=== PATIENT | male | born 1990 | race Caucasian/White ===

== ENCOUNTER 2020-10-14 08:49 | Outpatient (REF) | payer MEDICAID, SELFPAY | END 2020-10-14 08:50 | disposition home or self-care (01) | LOC: HO.LAB 08:49 | PROVIDERS: PCP Hospitalist; Visit Provider Internal Medicine | DX: Z20.828 Contact with and (suspected) exposure to other viral communicable diseases (principal) | CPT/HCPCS: C9803; U0003 ==

== ENCOUNTER 2021-09-18 18:56 | Emergency (ER) | payer MEDICAID, SELFPAY ==
--- NOTE | 2021-09-18 21:14 | ED.WOUNDLAC ---
HPI - Wound/Laceration General Stated Complaint: Thumb lac Time Seen by Provider: 09/18/21 20:47 Source: patient Mode of arrival: ambulatory Limitations: no limitations History of Present Illness HPI narrative: This is a 31-year-old male that comes to the emergency department to a laceration to his right distal 1st digit that occured at noon today. Patient tells me he was working with glass, and he cut himself. He tells me he immediately cleaned the area, the bleeding was well controlled. Patient is not on a blood thinners. He does not suspect that there is a foreign body within the laceration. This was a work related injury. He denies numbness, tingling, fevers, chills, chest pain, shortness of breath. He is able to move the finger with no difficulty. He is not up to date on a tetanus shot. Onset (ago): hour(s) (9) Location: other (right 1st digit (distal aspect)) Place: work Patient tetanus UTD: No Context: accidental Associated symptoms: none Treatments prior to arrival: other (cleaned area. ) Related Data Allergies Allergy/AdvReac Type Severity Reaction Status Date / Time Unable to Assess Allergy Unverified 09/18/21 20:50 Review of Systems Review of Systems: Constitutional : No Fever, No Chills, Cardiovascular : No Chest Pain, No SOB Respiratory : No Dyspnea Gastrointestinal : No abdominal pain Musculoskeletal : No Joint Swelling Skin : No rash, positive skin laceration Neuro : No Weakness, No Numbness Psych : No SI/HI PMFSH Past Medical History Attestation statement: The following information was validated with the patient. Source: old records reviewed and nursing notes reviewed Social History Social History Advance Directives: No Advance Directives Information Provided: No Physical Exam Vital Signs: Appearance: Alert.? Oriented X3.? No acute distress.? Head: Normocephalic, atraumatic, no step-offs or deformities Eyes: Pupils equal, round and reactive to light.? ENT: Pharynx normal.? Neck: Normal inspection.? Neck supple.? CVS: Normal heart rate and rhythm.? Pulses normal.? Respiratory: No respiratory distress.? Breath sounds normal.? Abdomen: Soft and nontender.? Skin: Skin warm and dry.? Normal skin color.? Normal skin turgor.?+ 4 cm linear laceration to the ventral right 1st distal digit. That digit has sensory and motor intact. And full range of motion. No evidence of foreign bodies. Extremities: No lower extremity edema.? No calf ttp. 5/5 strength to bilateral upper and lower extremities Back: No midline tenderness, no C-spine tenderness, full range of motion, no CVA tenderness bilaterally Neuro: Oriented X 3.? No motor deficit.? No sensory deficit. MDM - Wound/Laceration MDM Narrative Medical decision making narrative: 2117 This is a 31-year-old male that presents to the emergency department status post cutting himself on glass at work today, he cut his the ventral aspect right 1st distal digit with glass. Patient tells me clean the area after the cut. He does not suspect that there is a foreign body in the area. He denies fevers, chills, nausea, vomiting, tingling, numbness to the area. He tells me is able to move his finger, and sensation is intact. He is not up-to-date on tetanus shot. Upon physical examination patient appears well, he is in no distress. Lungs are clear to auscultation. S1-S2 appreciated free of murmurs. Abdomen soft nontender nondistended. Bilateral upper and lower extremities 5/5 strength, sensation motor intact. There is a 4 cm linear laceration to the ventral right 1st distal digit. That digit has sensory and motor intact. And full range of motion. There does not appear to be any foreign bodies in the area. I discussed obtaining a plain film of the right hand to ensure that there is no foreign bodies however patient tells me he does not want an x-ray since he does not think there is anything in there. I warned the patient that if there is there could be risks associated with a retained foreign body. I was able to successfully suture the lashes array crystal using 4-0 nylon sutures, I put 4 sutures in, simple interrupted. Patient tolerated procedure well. Seeing as though this was a simple laceration, with glass, and patient is not a diabetic or immunocompromised I will not prescribe antibiotics at this time. I have advised patient to put antibiotic ointment on to the area, and return to get suture removal in 7-10 days. I also gave him strict return precautions, and explained him signs of infection such as fevers, chills, nausea, vomiting, discharge from the wound, worsening pain. Patient understood these instructions, and will return if any of these occur. I also ordered a Boostrix shot for the patient. Patient is safe for discharge home and he should return in 7-10 days for suture removal. Procedures Laceration Laceration 1: Site: other (Ventral, distal aspect of 1st digit.) Side (If applicable): right Size (cm): 4 Description: linear Depth: simple, single layer Local Anesthetic: lidocaine 1% Amount of anesthesia used (mL): 5 Pre-repair: wound explored, irrigated extensively and deep structures intact Skin layer closed with: nylon Size (cm): 4-0 Number of sutures: 4 Technique: simple, interrupted Critical Care Time Critical Care Time Critical Care Time: No Discharge Plan Discharge Clinical Impression: Laceration of right thumb, Work related injury Patient Disposition: Home, Self-Care Instructions: Laceration (ED), Finger Laceration (ED) Additional Instructions: Follow-up with your primary care provider this week. Return to the emergency department in 7-10 days for suture removal. Follow up with the work connection if needed since this was a work related injury. [phone] Return to the emergency department with new or worsening symptoms. Or if he develops signs of infection such as redness, swelling, severe pain, discharge from the wound. In case of emergency call 911 Referrals: Mik Griffin [Primary Care Provider] - 2 days
[2021-09-18 21:34] VITALS: BP 149/92; PULSE 90; RESP 18; TEMP 37.1; O2SAT 96; BMI 36.9
[2021-09-18] MEDS: Diphth,Pertus(ACell),Tet Adult 0.5 ML SYRINGE IM (21:42)
--- NOTE | 2021-09-18 21:43 | PC.NURSE ---
lidocaine given by ER mid level provider and discarded
== END 2021-09-18 21:46 | disposition home or self-care (01) ==
PROVIDERS: Emergency Provider Internal Medicine; PCP Hospitalist
DX: S61.210A Laceration without foreign body of right index finger without damage to nail, initial encounter (principal); W25.XXXA Contact with sharp glass, initial encounter; Y93.9 Activity, unspecified; Y92.9 Unspecified place or not applicable; Y99.0 Civilian activity done for income or pay
CPT/HCPCS: 12042; 90471; 90715; 99283; 99284

== ENCOUNTER 2023-01-16 07:46 | Emergency (ER) | payer MEDICAID, SELFPAY ==
--- NOTE | ~2023-01-16 | XR_ITS ---
EXAMINATION: XR RIBS, LEFT CLINICAL INFORMATION: Pain. COMPARISON: None available. TECHNIQUE: PA view the chest as well as 3 views of the left ribs. FINDINGS: Lungs are clear. No consolidation, pneumothorax, or pleural effusion. The cardiomediastinal silhouette and pulmonary vasculature are normal. Osseous structures are unremarkable. Ribs are intact. No fractures are identified. XR/XR ribs LT min 3V w CXR1V IMPRESSION: Unremarkable examination.
[2023-01-16 08:09] VITALS: BP 141/99; PULSE 101; RESP 16; TEMP 36.6; O2SAT 97; BMI 42.2
--- OUTSIDE RECORDS SUMMARY | 2023-01-16 09:07 | XMS_ITS | Continuity of Care Document ---
:1990 Author Organization [facility] Address [address] [place] [address]- Care Team Providers Name Role Phone Gorge MAURICE, Jeny Moser Primary Care Physician Encounter [facility] [place] Date(s): 02/28/22 - 03/30/22 [facility] [address] [place] [address]- Allergies, Adverse Reactions, Alerts Substance Reaction Severity Status nonsteroidal antiinflammatory agent respiratory distress Active Motrin Bronchospasm Active Immunizations Given and Recorded Vaccine Date Status Refusal Reason influenza virus vaccine, inactivated1 07/29/18 Recorded influenza virus vaccine, inactivated2 09/14/13 Given Influenza Virus Vaccine (oldterm)3 09/27/16 Given pneumococcal 23-valent vaccine4 04/13/13 Given tetanus/diphtheria/pertussis, acel(Tdap)5 04/13/13 Given 1Result Comment: [08/29/2018] [id number] Note: given at [facility]3Admin Note: stop and [id number] Note: vis given, waiver signed and put to [id number] Note: VIS GIVEN waiver signed and put scannning Medications albuterol CFC free 90 mcg/inh inhalation aerosol See Instructions, # 17 Unknown, Refills 5 Tot. Refills 5, INAHLE 2 PUFFS EVERY 4 HOURS NEEDED FORWHEEZING, [facility]/pharmacy #[id number] Start Date: 05/05/19 Status: OrderedNebulizer/Compressor See Instructions, # 1 each, Maintenance, use as directed for mild persistent asthma, 04/29/14 14:01:59, Compound Start Date: 04/29/14 Status: Ordered Problem List Condition Effective Dates Status Health Status Informant Allergic rhinitis(Confirmed) Active Asthma - mild persistent(Confirmed)1 Active Adult general medical exam(Confirmed) Active 1triggered by smoke exposure Social History Social History Type Response Smoking Status Current some day smoker entered on: 11/26/17 Sex
--- OUTSIDE RECORDS SUMMARY | 2023-01-16 09:07 | XMS_ITS | Continuity of Care Document ---
:1990 Author Organization [facility] Address [address] [place] [id number]- Care Team Providers Name Role Phone Mik Griffin MD Primary Care Physician Encounter [facility] [place] ACCT R [id number] Date(s): 03/26/20 - 03/26/[address] [address]- [facility] Discharge Disposition: A-D/C Home Attending Physician: Jarocho Peraza MD Admitting Physician: Jarocho Peraza MD Referring Physician: Not on Staff, Referring MD Allergies, Adverse Reactions, Alerts Substance Reaction Severity Status nonsteroidal antiinflammatory agent respiratory distress Active Motrin Bronchospasm Active Immunizations Given and Recorded Vaccine Date Status Refusal Reason influenza virus vaccine, inactivated1 07/29/18 Recorded influenza virus vaccine, inactivated2 09/14/13 Given Influenza Virus Vaccine (oldterm)3 09/27/16 Given pneumococcal 23-valent vaccine4 04/13/13 Given tetanus/diphtheria/pertussis, acel(Tdap)5 04/13/13 Given 1Result Comment: [08/29/2018] [id number] Note: given at [facility]3Admin Note: stop and [id number] Note: vis given, waiver signed and put to [id number] Note: VIS GIVEN waiver signed and put scannning Medications albuterol CFC free 90 mcg/inh inhalation aerosol See Instructions, # 17 Unknown, Refills 5 Tot. Refills 5, INAHLE 2 PUFFS EVERY 4 HOURS NEEDED FORWHEEZING, [facility]/pharmacy #[id number] Start Date: 05/05/19 Status: OrderedNebulizer/Compressor See Instructions, # 1 each, Maintenance, use as directed for mild persistent asthma, 04/29/14 14:01:59, Compound Start Date: 04/29/14 Status: OrderedoxyCODONE 5 mg oral tablet 5 mg, 1, tablet, By Mouth, Every 6 hours, PRN, for 3 days, # 7 tablet, Refills 0, Tot. Refills 0, Acute 03/29/20 12:03:00 EDT, Pain , Severe, 03/26/20 12:03:00 EDT, Print Requisition, Partial fill uponpatient request Start Date: 03/26/20 Stop Date: 03/29/20 Status: Ordered Problem List Condition Effective Dates Status Health Status Informant Allergic rhinitis(Confirmed) Active Asthma - mild persistent(Confirmed)1 Active Adult general medical exam(Confirmed) Active 1triggered by smoke exposure Results Radiology Reports Exam Date Time Procedure Performing Provider Status 03/26/20 4:46 AM Chest Portable Pooja Burt; Allison (Verified) Notes:(Chest Portable) Reason For Exam: Pain;Other:RESULT: Chest Portable Chest Portable Reason: Pain. Trauma. COMPARISON: None. FINDINGS: LINES AND TUBES: None. LUNGS AND PLEURA: Clear lungs. Normal pulmonary vascularity. No pleural effusion. No pneumothorax. HEART, MEDIASTINUM AND LOUISA: Heart is normal in size. Normal mediastinal and hilar contour. BONES AND SOFT TISSUES: No acute abnormality. IMPRESSION: No acute abnormality. WSN: [id number] Ordering Physician: Erik Trotter Dictated By: Misael Humphrey MD Dictated Date/Time: 03/26/20 8:20 am Reviewed By: Misael Humphrey MD Signed By: Misael Humphrey MD Signed Date/Time: 03/26/20 8:20 am Transcribed By: POOJA Transcribed Date/Time: 03/26/20 8:17 am Vital Signs Most recent to oldest 1 2 3 [Reference Range]: Oxygen Saturation [94-100 %] 99 % 96 % 97 % (03/26/20 12:17 PM) (03/26/20 11:51 AM) (03/26/20 1 0:49 AM) Pulse Rate [55-90 bpm] 114 bpm 116 bpm 117 bpm *H* *H* *H* (03/26/20 12:17 PM) (03/26/20 11:51 AM) (03/26/20 1 0:49 AM) Blood Pressure [90-138/55-84 135/90 mm Hg 131/93 mm Hg 136 /98 mm Hg mm Hg] (03/26/20 12:17 PM) (03/26/20 11:51 AM) (03/26/20 1 0:49 AM) Respiratory Rate [16-30 16 br/min 16 br/min 16 br/mi n br/min] (03/26/20 12:17 PM) (03/26/20 11:51 AM) (03/26/20 1 0:58 AM) Mode of Delivery (Oxygen) Room air Room air Room a ir (03/26/20 12:17 PM) (03/26/20 11:51 AM) (03/26/20 1 0:49 AM) Blood pressure sites Arm, left Arm, left Arm, left (03/26/20 11:51 AM) (03/26/20 10:49 AM) (03/26/20 8 :00 AM) Social History Social History Type Response Smoking Status Current some day smoker entered on: 11/26/17 Sex
--- OUTSIDE RECORDS SUMMARY | 2023-01-16 09:07 | XMS_ITS | Continuity of Care Document ---
:1990 Author Organization [facility] Address [address] [place] [address]- Care Team Providers Name Role Phone Mik Griffin MD Primary Care Physician Encounter [facility] [id number] Date(s): 03/25/20 - 03/26/[address] [address]- [facility] Encounter Diagnosis Intracranial subdural hemorrhage (Final) - 03/26/20 Discharge Disposition: A-D/C AMA Attending Physician: Zenaida Lozoya MD Admitting Physician: Zenaida Lozoya MD Referring Physician: Not on Staff, Referring [...] tetanus/diphtheria/pertussis, acel(Tdap)5 04/13/13 Given 1Result Comment: [08/29/2018] [id number] Note: given at [facility]3Admin Note: stop and [id number] Note: vis given, waiver signed and put to [id number] Note: VIS GIVEN waiver signed and put scannning Medications albuterol CFC free 90 mcg/inh inhalation aerosol See Instructions, # 17 Unknown, Refills 5 Tot. Refills 5, INAHLE 2 PUFFS EVERY 4 HOURS NEEDED FORWHEEZING, [facility]/pharmacy #[id number] Start Date: 05/05/19 Status: OrderedNebulizer/Compressor See [...] Date Time Procedure Performing Provider Status 03/26/20 2:36 AM Calcaneus Min 2 Views Left Ling Mayorga (Verified) Notes:(Calcaneus Min 2 Views Left) Reason For Exam: with Pain;TraumaRESULT: Calcaneus Min 2 Views Left Calcaneus Min 2 Views Left Indication: Trauma. Pain. COMPARISON: None. FINDINGS: No evidence of acute or healing fracture or bone lesion. No arthritic changes or heel spurs. IMPRESSION: No displaced fracture. Normal alignment. WSN: [id number] Ordering Physician: Zenaida Lozoya Dictated By: Misael Humphrey MD Dictated Date/Time: 03/26/20 8:14 am Reviewed By: Misael Humphrey MD Signed By: Misael Humphrey MD Signed Date/Time: 03/26/20 8:14 am Transcribed By: POOJA Transcribed Date/Time: 03/26/20 8:10 am Vital Signs Most recent to oldest [Reference Range]: 1 2 Height 178 cm (03/26/20 12:05 AM) Weight 95.9 kg (03/26/20 12:05 AM) Oxygen Saturation [94-100 %] 98 % 98 % (03/26/20 3:19 AM) (03/26/20 12:05 AM) Pulse Rate [55-90 bpm] 100 bpm 114 bpm *H* *H* (03/26/20 3:19 AM) (03/26/20 12:05 AM) Blood Pressure [90-138/55-84 mm Hg] 121/85 mm Hg 139/ 92 mm Hg (03/26/20 3:19 AM) *H* (03/26/20 12:05 AM) Respiratory Rate [16-30 br/min] 16 br/min 18 br/mi n (03/26/20 3:19 AM) (03/26/20 12:05 AM) Temperature [96.8-100.4 DegF] 97.7 DegF (03/26/20 12:05 AM) Mode of Delivery (Oxygen) Room air Room air (03/26/20 3:19 AM) (03/26/20 12:05 AM) Blood pressure sites Arm, left Arm, left (03/26/20 3:19 AM) (03/26/20 12:05 AM) Temperature Route Oral (03/26/20 12:05 AM) Dry Weight 95.9 kg (03/26/20 12:05 AM) Weight Obtained Via Standing scale (03/26/20 12:05 AM) Dry Weight Obtained Via Standing scale (03/26/20 12:05 AM) Social History Social History Type Response Smoking Status Current some day smoker entered on: 11/26/17 Sex
--- NOTE | 2023-01-16 09:12 | ED_ITS ---
HPI - General Adult General Chief complaint: General Medical Stated complaint: L rib pain Time Seen by Provider: 01/16/23 09:06 Source: patient Mode of arrival: ambulatory Limitations: no limitations History of Present Illness HPI narrative: Patient is a 32 year old assigned male at with no reported medical history presenting to the emergency department today with left sided rib pain after coughing. Patient states that he fell on 01/08 and was treated here in the ED. Patient states that yesterday, he coughed and felt a pop on his left sided and is now having worse left sided rib pain. Patient denies any dizziness, lightheadedness, abdominal pain, nausea, vomiting, fever, chills, blurry vision, double vision, loss of vision, chest pain, difficulty breathing, shortness of breath, back pain, night sweats, pain with urination, increased urinary frequency, increased urinary urgency, blood in his urine or stool, syncope or a near syncopal episode, bowel incontinence, bladder incontinence, bowel retentio n, bladder retention, or any other complaints at this time. Onset (ago): day(s) (1) Radiation: non-radiation Severity: mild Severity scale (1-10): 3 Quality: aching and dull Pain Consistency: constant Relieving factors: none Exacerbating factors: none Associated symptoms: denies other symptoms Treatments prior to arrival: none Related Data Allergies Allergy/AdvReac Type Severity Reaction Status Date / Time No Known Drug Allergies Allergy Unknown Verified 01/16/23 08:08 Review of Systems Constitutional: Constitutional: Reports no additional constitutional complaints, Denies chills, Denies fever(s) and Denies night sweats Eyes: Eyes: Reports no additional eye complaints, Denies blurry vision, Denies change in vision, Denies diplopia, Denies eye discharge, Denies loss of vision and Denies eye pain ENT: Denies dizziness Cardiovascular: Cardiovascular: Reports no additional cardiovascular complaints, Denies chest pain, Denies lightheadedness, Denies Loss of Consciousness and Denies dyspnea Respiratory: Respiratory: Reports no additional respiratory complaints and Denies dyspnea Gastrointestinal: Gastrointestinal: Reports no additional gastrointestinal complaints, Denies abdominal pain, Denies melena, Denies hematochezia, Denies change in bowel habits and Denies change in stool character Genitourinary: Genitourinary: Reports no additional male genitourinary complaints, Denies hematuria, Denies oliguria, Denies difficulty urinating, Denies dysuria, Denies urinary frequency, Denies urinary hesitancy, Denies urinary incontinence and Denies urinary urgency Musculoskeletal: Musculoskeletal: Reports no additional musculoskeletal complaints, Denies numbness and Denies tingling Neurologic: Denies dizziness, Denies loss of vision, Denies numbness and Denies tingling Psychiatric: Psychiatric: Reports no additional psychiatric complaints Endocrine: Endocrine: Reports no additional endocrine complaints Hematologic/Lymphatic: Hematologic/Lymphatic: Reports no additional hematologic/lymphatic complaints Allergic/Immunologic: Allergic/Immunologic: Reports no additional allergic/immunologic complaints [facility] Past Medical History Attestation statement: The following information was validated with the patient. Source: old records reviewed and nursing notes reviewed Social History Social History Advance Directives: No Advance Directives Information Provided: No Physical Exam ED Vital Signs: Vital Signs - 24 hr 01/16/23 08:09 Temperature 98 F Pulse Rate 101 H Respiratory Rate 16 Blood Pressure 141/99 H Pulse Oximetry 97 Oxygen Delivery Method Room Air BMI result Body Mass Index 42.2 Const General: cooperative, no acute distress, alert and awake Nutritional Appearance: well nourished Orientation/consciousness: patient oriented x3 Limitations: no limitations HENMT Head: Yes normal to inspection and Yes atraumatic Ears: hearing grossly normal bilaterally and external ears normal General nose exam: Normal external nose present, no nasal discharge noted and no epistaxis Face and sinus: Yes normal facial exam, No abrasion and No laceration Mouth: Normal oral and palatal mucosa present, no drooling and no muffled voice Eyes General: appearance normal, both eyes and all related structures Periorbital: periorbital findings normal Eyelids: Yes eyelids normal Conjunctivae: conjunctivae normal Pupils: Equal, round and reactive pupils present EOM: EOMs intact bilaterally Neck Neck: Yes normal visual inspection, Yes full ROM and Yes no lymphadenopathy Chest Chest palpation & inspection: normal inspection of the chest Resp Effort & Inspection: normal respiratory effort and able to speak in complete sentences Auscultation: clear to auscultation bilaterally Cardio Rate: regular rate Rhythm: regular rhythm GI Inspection: Yes normal to inspection Palpation (GI): Soft to palpation, not firm, nontender, no guarding and not rigid Neuro General: patient oriented x3 and moves all extremities Cranial nerves: Yes Equal, round and reactive pupils present Cognition (Neuro): normal cognition Motor exam (neuro): 5/5 motor strength present throughout Sensory Exam: Normal double simultaneous stimulation for sensation Coordination: [id number] test normal Extrem General: Yes normal to inspection, Yes full ROM and Yes capillary refill normal Psych Appearance: grossly normal Mental Status: mental status grossly normal Affect: normal affect Attitude: cooperative Thought process: Normal thought process present Thought content: Normal thought content present Insight: Good insight present (Psych) Medications Administered Discontinued Medications Generic Name Dose Route Start Last Admin Trade Name Thor PRN Reason Stop Dose Admin Ketorolac Tromethamine 15 mg 01/16/23 09:17 01/16/23 09:41 Ketorolac Tromethamine 15 Mg/Ml Vial IM 01/16/23 09:18 15 mg ONCE ONE Administration Medical Decision Making Medical Decision Making [facility] Narrative: Patient is a 32 year old assigned male at with no reported medical history presenting to the emergency department today with left sided rib pain. Patient's physical exam was unremarkable. Patient's left rib x-ray showed no acute process. I explained my physical exam findings as well as all test results to the patient. I answered all questions asked by the patient. Patient received IM Toradol which he stated helped his symptoms significantly. I stressed the importance of the patient taking his medication as prescribed. I stressed the importance of the patient following up with his primary care provider. I stressed the importance of the patient returning to the emergency department immediately if his symptoms were to worsen or if he were to develop any dizziness, shortness of breath, difficulty breathing, chest pain, blurry vision, loss of vision, nausea, vomiting, abdominal pain, fever, chills, back pain, or any other complaints. Patient verbalized agreement and understanding with this treatment plan and discharge. Differential Diagnosis Differential Diagnoses: The differential diagnosis associated with the presentation includes left sided rib pain Independent Interpretation I performed an independent interpretation of an: Plain X-Ray Interpretation: My interpretation is in agreement with the radiologist's impression of this imaging study. EXAMINATION: XR RIBS, LEFT CLINICAL INFORMATION: Pain. COMPARISON: None available. TECHNIQUE: PA view the chest as well as 3 views of the left ribs. FINDINGS: Lungs are clear. No consolidation, pneumothorax, or pleural effusion. The cardiomediastinal silhouette and pulmonary vasculature are normal. Osseous structures are unremarkable. Ribs are intact. No fractures are identified. XR/XR ribs LT min 3V w CXR1V IMPRESSION: Unremarkable examination. Dictated By: Win Fair MD Signed By: Electronically signed by Win Fair MD 01/16/23 0902 Discharge Plan Discharge Clinical Impression: Rib pain Patient Disposition: Home, Self-Care Instructions: Rib Contusion (ED) Additional Instructions: Follow up with your primary care provider. Return to the emergency department immediately if your symptoms worsen or if you develop any dizziness, shortness of breath, difficulty breathing, chest pain, blurry vision, loss of vision, nausea, vomiting, abdominal pain, fever, chills, back pain, or any other complaints. Referrals: Mik Griffin MD [Primary Care Provider] - Stand Alone Forms: Work/School Release Interventions: ED Discharge Assessment Last Done: 01/16/23 10:30 Discharge Date/Time: 01/16/23 10:32 Print Language: Slovak
[2023-01-16] MEDS: Ketorolac Tromethamine 15 MG/ML VIAL IM (09:41)
== END 2023-01-16 10:32 | disposition home or self-care (01) ==
PROVIDERS: Emergency Provider Emergency Medicine; PCP Hospitalist
DX: R07.81 Pleurodynia (principal)
CPT/HCPCS: 71101; 96372; 99283; 99284; J1885

== ENCOUNTER 2024-03-11 18:57 | Inpatient (IN) | payer MEDICAID, OTHER, SELFPAY ==
--- NOTE | ~2024-03-11 | CT_ITS ---
EXAMINATION: CT HEAD WITHOUT CONTRAST CLINICAL INFORMATION: Altered mental status. COMPARISON: None. TECHNIQUE: Contiguous axial imaging was performed from the skullbase to vertex without intravenous administration of contrast. This CT examination was performed using dose optimization techniques as appropriate, variously including the following: *Automated exposure control *Adjustment of mA and/or kV according to patient size (this includes techniques or standardized protocols for targeted exams where dose is matched to indication/reason for exam; i.e. extremities or head) *Use of iterative reconstruction technique DLP: 702 mGy-cm. FINDINGS: There is no evidence of acute intracranial hemorrhage or territorial infarction. No abnormal mass effect or midline shift is seen. Gomez to white matter differentiation is well preserved. No extra-axial fluid collections are identified. The ventricles are normal in size. There is no abnormal attenuation within the brain parenchyma. The osseous structures and soft tissues are normal. The mastoid air cells and visualized portions of the paranasal sinuses are well aerated. CT/CT head/brain wo IV con IMPRESSION: No acute intracranial pathology.
[2024-03-11 19:30] VITALS: BP 119/65; BP 142/67; PULSE 92; PULSE 93; RESP 18; TEMP 36.6; O2SAT 96; O2SAT 97; BMI 41.7
--- NOTE | 2024-03-11 19:56 | ED_ITS ---
HPI - General Adult General Chief complaint: Overdose Stated complaint: FOUND UNCNSCIOUS,NARCAN GIVEN,PT USED CRACK Time Seen by Provider: 03/11/24 19:20 Source: patient and old records reviewed Mode of arrival: ambulatory Limitations: no limitations History of Present Illness HPI narrative: 33-year-old male presents for evaluation after reported overdose Patient admits to smoking heroin Apparently his mother found him ?not breathing and with his lips blue. ? He was given 2 mg of Narcan which she responded well to Again, the patient admits to using opiates but denies intent to harm himself I spoke to the patient's mother who is bedside She reports that he has been expressing suicidal ideation for about 1 month He is recently going through a break-up with the mother of 2 of his 3 children He has been expressing numerous self-harm comments to his mother. She reports that he is also involved in self-harm and cuts his legs and feet The patient's mother also reports the patient has a drinking problem Related Data Allergies Allergy/AdvReac Type Severity Reaction Status Date / Time aspirin Allergy Shortness Verified 03/11/24 19:38 of Breath Review of Systems 2 Constitutional: Constitutional: Denies body ache(s), Denies chills, Denies fever(s) and Denies headache(s) Eyes: Eyes: Denies blurry vision ENT: Denies vertigo, Denies dizziness and Denies headache(s) Cardiovascular: Cardiovascular: Denies chest pain and Denies dyspnea Respiratory: Respiratory: Denies cough and Denies dyspnea Gastrointestinal: Gastrointestinal: Denies abdominal pain, Denies nausea and Denies vomiting Musculoskeletal: Musculoskeletal: Denies back pain Integumentary/Breasts: Skin/Breast: Denies rash Neurologic: Denies vertigo, Denies dizziness and Denies headache(s) Psychiatric: Psychiatric: Reports depression and Reports suicidal ideation [facility] Social History Social History Advance Directives: No Advance Directives Information Provided: No Do you have a plan to hurt others: No Plan Physical Exam ED Vital Signs: Vital Signs - 24 hr 03/11/24 19:30 Temperature 98 F Pulse Rate 93 Respiratory Rate 18 Blood Pressure 119/65 Pulse Oximetry 96 Oxygen Delivery Method Room Air BMI result Body Mass Index 41.7 Const General: healthy appearing, comfortable, no acute distress, alert and awake Nutritional Appearance: well nourished Orientation/consciousness: patient oriented x3 HENMT Head: Yes normocephalic and Yes atraumatic Eyes Eyelids: Yes eyelids normal Conjunctivae: conjunctivae normal Sclerae: sclerae normal Corneas: corneas normal Pupils: Equal, round and reactive pupils present EOM: EOMs intact bilaterally Neck Neck: Yes full ROM Resp Effort & Inspection: normal respiratory effort, able to speak in complete sentences and not labored GI Inspection: No distended Palpation (GI): Soft to palpation, not firm, nontender, no guarding and not rigid Skin General skin exam: elasticity normal Neuro General: patient oriented x3 Cranial nerves: Yes CN's II-XII intact bilaterally, Yes Equal, round and reactive pupils present and Yes Bilaterally intact EOM present Cognition (Neuro): normal cognition Extrem Other: Moving all extremities well without any obvious deformities Course Reevaluation(s) Reevaluation #1: When the patient was on the phone with his girlfriend he told his mother ?you should not have Narcan'ed me. The patient's mother felt that he was implying that she should have let him . Time: 20:43 Reevaluation #2: Plan for re-evaluation in the morning Time: 02:15 Medications Administered Discontinued Medications Generic Name Dose Route Start Last Admin Trade Name Thor PRN Reason Stop Dose Admin Lorazepam 2 mg 03/11/24 22:50 03/11/24 22:53 Lorazepam 1 Mg Tablet PO 03/11/24 22:51 2 mg ONCE ONE Administration Medical Decision Making Medical Decision Making [facility] Narrative: 33-year-old male presents for evaluation of an opiate overdose. The patient's mother found him unresponsive and he required Narcan to be able to breathe independently. The patient arrives the ER awake, alert and oriented. Initially he was denying any suicidal ideation to me. I discussed with his mother at length who expresses numerous concerns about suicidal comments in the past and recent stressors that the patient has been through. She is very concerned that he will harm himself. I discussed these with the patient who did not deny them. Plan for medical clearance and care team evaluation. The patient is awake, alert and oriented to me he is acting appropriately. However, the patient's mother states that he has been perseverating and asking the same question repeated times. Plan for CT scan. The patient has no neuro deficits on my exam Differential Diagnosis Differential Diagnoses: The differential diagnosis associated with the presentation includes Substance abuse Depression Suicidal ideation Bipolar disorder Lab Data 03/11/24 20:48 03/11/24 20:48 Labs: Lab Results 03/11/24 Range/Units 20:48 WBC 17.4 H (4.8-10.8) X10*3/uL RBC 5.08 (4.60-5.80) X10*6/uL Hgb 14.9 (14.0-18.0) g/dl Hct 44.2 (42.0-52.0) % MCV 87.0 (80.0-98.0) fL MCH 29.3 (27.0-33.0) pg MCHC 33.7 (31.0-36.0) g/dl RDW 12.7 (11.0-16.0) % Plt Count 277 (160-400) X10*3/uL MPV 10.2 (9.4-12.4) fL Immature Gran % (Auto) 0.5 H (0.0-0.4) % Neut % (Auto) 86.9 H (45-73) % Lymph % (Auto) 6.1 L (20-40) % [place] % (Auto) 6.1 (2-11) % Eos % (Auto) 0.1 (0-4) % Baso % (Auto) 0.3 (0-2) % Lymph # (Auto) 1.1 L (1.2-4.9) X10*3/uL [place] # (Auto) 1.1 (0.1-1.2) X10*3/uL Eos # (Auto) 0.0 (0.0-0.4) X10*3/uL Baso # (Auto) 0.1 (0.0-0.2) X10*3/uL Abs Immat Gran (auto) 0.09 H (0.00-0.03) X10*3/uL Absolute Neuts (auto) 15.1 H (2.0-8.3) x10*3/uL Absolute Nucleated RBC 0.000 (0.0-0.012) X10*3/uL Nucleated RBC % (auto) 0.0 (0.0-0.2) /100WBC Sodium 141 (135-145) mmol/L Potassium 4.2 (3.3-5.1) mmol/L Chloride 107 (96-108) mmol/L Carbon Dioxide 25 (22-29) mmol/L Anion Gap 13 (12-20) BUN 11 (9-16) mg/dL Creatinine 0.84 (0.5-1.4) mg/dL Estim Creat Clear Calc 168.7 Estimated GFR > 60 Random Glucose 75 (60-115) mg/dL Calcium 9.1 (8.4-10.2) mg/dL Total Bilirubin 0.2 (0.0-1.0) mg/dL AST 26 (5-37) U/L ALT 32 (0-40) U/L Alkaline Phosphatase 81 (39-117) U/L Total Protein 7.5 (6.5-8.0) g/dL Albumin 4.2 (3.5-5.0) g/dL Salicylates < 5.0 L (15-30) mg/dL Urine Opiates Screen POSITIVE H (Not Detect) Ur Buprenorphine Scrn Not Detected (Not Detect) ng/mL Ur Oxycodone Screen Not Detected (Not Detect) ng/mL Urine Methadone Screen Not Detected (Not Detect) ng/mL Urine Fentanyl Screen POSITIVE H (Not Detect) Acetaminophen < 3 (<30) mcg/mL Ur Barbiturates Screen Not Detected (Not Detect) Ur Phencyclidine Scrn Not Detected (Not Detect) Ur Amphetamines Screen Not Detected (Not Detect) U Benzodiazepines Scrn Not Detected (Not Detect) Urine Cocaine Screen POSITIVE H (Not Detect) U Marijuana (THC) Screen POSITIVE H (Not Detect) Ethyl Alcohol < 10 mg/dL Discharge Plan Discharge Clinical Impression: Drug overdose, Depression Patient Disposition: Still a Patient Print Language: Kiswahili
--- NOTE | 2024-03-11 20:49 | MHC.EDTECH ---
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
[2024-03-11 20:53] LABS: MANUAL DIFF FLAG NO
[2024-03-11 20:58] LABS: Basophils Absolute Auto 0.1 X10*3/uL (0.0-0.2); Basophils Percent Auto 0.3 % (0-2); Eosinophils Percent Auto 0.1 % (0-4); Hematocrit 44.2 % (42.0-52.0); Hemoglobin 14.9 g/dl (14.0-18.0); Imm Gran Abs Auto 0.09 X10*3/uL (0.00-0.03); Imm Gran Pct Auto 0.5 % (0.0-0.4); Lymphocytes Absolute Auto 1.1 X10*3/uL (1.2-4.9); Lymphocytes Percent Auto 6.1 % (20-40); Mean Corpuscular HGB Conc 33.7 g/dl (31.0-36.0); Mean Corpuscular Hemoglobin 29.3 pg (27.0-33.0); Mean Platelet Volume 10.2 fL (9.4-12.4); Monocytes Absolute Auto 1.1 X10*3/uL (0.1-1.2); Monocytes Percent Auto 6.1 % (2-11); Neutrophils Absolute Auto 15.1 x10*3/uL (2.0-8.3); Neutrophils Percent Auto 86.9 % (45-73); Platelet Count 277 X10*3/uL (160-400); Red Blood Count 5.08 X10*6/uL (4.60-5.80); Red Cell Distribution Width 12.7 % (11.0-16.0); White Blood Count 17.4 X10*3/uL (4.8-10.8)
[2024-03-11 21:06] LABS: Amphetamine Screen Urine Not Detected (Not Detect); Barbiturates, Urine Not Detected (Not Detect); Benzodiazepines Screen Urine Not Detected (Not Detect); Buprenorphine Scr Not Detected (Not Detect); Cannabinoid Screen Urine POSITIVE (Not Detect); Cocaine Screen Urine POSITIVE (Not Detect); Fentanyl, urine POSITIVE (Not Detect); Methadone Screen, Urine Not Detected (Not Detect); Opiate Screen Urine POSITIVE (Not Detect); Oxycodone Screen Urine Not Detected (Not Detect); Phencyclidine Screen Urine Not Detected (Not Detect)
[2024-03-11 21:10] LABS: Acetaminophen LAB < 3 mcg/mL (<30); Alanine Aminotransferase 32 U/L (0-40); Albumin Level 4.2 g/dL (3.5-5.0); Alkaline Phosphatase 81 U/L (39-117); Anion Gap 13 (12-20); Aspartate Amino Transferase 26 U/L (5-37); Bilirubin Total 0.2 mg/dL (0.0-1.0); Blood Urea Nitrogen 11 mg/dL (9-16); Calcium 9.1 mg/dL (8.4-10.2); Carbon Dioxide 25 mmol/L (22-29); Chloride 107 mmol/L (96-108); Creatinine Clr Calc Pharmacy 168.7; Estimated Glomerular Filt Rate > 60; Ethanol < 10 mg/dL; Glucose Random 75 mg/dL (60-115); Potassium 4.2 mmol/L (3.3-5.1); Salicylate < 5.0 mg/dL (15-30); Sodium 141 mmol/L (135-145); Total Protein 7.5 g/dL (6.5-8.0)
--- NOTE | 2024-03-11 22:02 | PC.NURSE ---
client walks around unit asking legal status to different staff in unit.
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
[2024-03-11] MEDS: LORazepam 1 MG TABLET 2 MG PO (22:53)
--- NOTE | 2024-03-11 23:39 | MHC.CARE ---
Mary, patient's ex girlfriend, contacted the CARE team after patient informed her that he was not able to utilize the phone anymore and informed her that she was able to speak to the care team or the nurse in the pod for further information as she is not aware of details surrounding what brought patient into the ED for a crisis evaluation. She indicated that he has contacted her multiple times and continues to repeat himself and the same question and reported that historically he would present with a similar presentation after he had been drinking and reported that he has a history of alcohol use in the past. She stated that he informed her that his mother brought him to the ED however, was unclear on further details and disclosed that his mother and her do not have a good relationship at this time due to an age gap. She stated that she is worried about the patient and reported that they were supposed to get back together however, they were having difficulties over finances and she requested that he renew his license and obtain transportation before allowing him back in the home. She reported that she understands if information is not allowed to be disclosed however, reiterated that he provided verbal consent while calling her and asked that the assessing clinician contact her when he is evaluated so she is able to provide any information if helpful. This underwriter mortgage loan obtained her phone number at this time which is as followed: [phone]. Assessing clinician can follow up as needed.
[2024-03-12 02:00] VITALS: BP 124/68; PULSE 82; RESP 16; O2SAT 98
[2024-03-12] MEDS: Acetaminophen 325 MG TABLET 650 MG PO (07:55)
--- NOTE | 2024-03-12 08:01 | PC.NURSE ---
Addendum entered by Yoanna Martinez 03/12/24 08:49: took shower this morning, conversing with staff. mother at bedside at this time. Original Note: patient awake, requesting tylenol for pain. medicated per the MAR. using phone at this time, speaking in full clear sentences with no obvious signs/symptoms of distress noted.
[2024-03-12] MEDS: Nicotine 21 MG PATCH.TD24 TRANSDERMA ×2 (09:22→18:04)
--- NOTE | 2024-03-12 09:43 | PC.NURSE ---
care team met with patient, speaking with mother in main ED currently.
[2024-03-12] MEDS: Nicotine Polacrilex 2 MG GUM BUCCAL ×2 (11:59→14:35)
[2024-03-12 12:18] VITALS: BP 138/78; PULSE 88; TEMP 36.4; O2SAT 96
--- NOTE | 2024-03-12 13:53 | ECG_ITS ---
Test Reason : QT INTERVAL Blood Pressure : / mmHG Vent. Rate : 085 BPM Atrial Rate : 085 BPM P-R Int : 160 ms QRS Dur : 082 ms QT Int : 392 ms P-R-T Axes : 055 064 024 degrees QTc Int : 466 ms Normal sinus rhythm Normal ECG No previous ECGs available Referred By: Anjel Garcia Electronically Signed By:LAURO MCDANIEL MD
[2024-03-12 14:11] LABS: Appearance Urine Turbid; Color Urine Yellow; Glucose Urine UA 250 mg/dL (Negative); Leukocyte Esterase Urine Negative (Negative); Nitrite Urine Negative (Negative); Specific Gravity - Urine 1.015 (1.005-1.025); UMIC TRIGGER UA YES; Urine Blood Negative (Negative); Urine Ketones Negative (Negative); Urine Protein 100 (2+) mg/dL (Neg-Trace)
[2024-03-12 14:51] LABS: Bacteria Urine None Seen (None Seen); Hyaline Casts Urine 0-2 /LPF (0-2); RBC Urine 0-2 /HPF (0-2); Squamous Epithelial Cell Urine 0-2 /HPF (0-2); WBC Urine 0-5 /HPF (0-5)
[2024-03-12] MEDS: LORazepam 1 MG TABLET PO (15:01)
--- NOTE | 2024-03-12 15:11 | MHC.RECOVRN ---
Met with pt in [facility] after pt presented to ED after overdose. Unclear if it was a SA, pt denies, however, mother had reported pt had been expressing SI. Met with pt after request from CARE Team. Pt sitting on edge of bed, awake, alert, easily engages in conversation. Pt appears comfortable, does not appear to be experiencing withdrawal. Pt denies use as a SA, states it was a bad decision. Pt reports up until last night he had been in recovery x 4 years. Pt reports last night he used 1/2 bag heroin/fentanyl, INH, which resulted in overdose. Pt denies hx overdoses. In regards to alcohol use, pt reports he had one beer last week, denies regular alcohol use. Pt reports he currently goes to AA, sometimes up to 5 meetings per week. Pt reports 4 years ago, prior to entering recovery, had been using cocaine and heroin/fentanyl x 5 months. Pt reports he began using cocaine socially with friends and use escalated and began consisting of opioids as well as cocaine. Pt denies history of injection. Reports INH route of use for substances. Pt denies hx treatment including medications for ARCHIE, ATS, disaster recovery consultant, etc. Discussed recovery resources and supports. In regards to a disaster recovery consultant, pt reports he would not reach out to a leadership coach if he had one. Suggested a leadership coach reaching out to patient, pt states I probably wouldn't nut picker. Pt declines referrals for other resources. Pt reports he will continue working and attending [facility]. Pt provided with written information as well as t/w contact information if needed. Pt denies questions or concerns for t/w.
--- NOTE | 2024-03-12 15:32 | HO.SUDE ---
Please see timber selector Note.
--- NOTE | 2024-03-12 17:28 | MHC.CARE ---
Patient evaluated by the CARE Team and psychiatry, disposition inpatient psychiatric treatment. Provider, Dr. Collado updated and in agreement with plan.
--- NOTE | 2024-03-12 18:41 | PC.NURSE ---
mother brought in patient's cell phone and clothing examiner which was placed into locker 6 d/t rest of belongings being in dec
--- NOTE | 2024-03-12 19:16 | PC.NURSE ---
patient appears to remain at rest at present patient appears in no distress
--- NOTE | 2024-03-12 20:18 | PC.NURSE ---
post asking client to adjourn to his room d/t him sitting within 10 feet of t/w receiving report client asks did i ever do anything to make you upset (similar question yesterday) t/w instructed client that i was direct in requesting what i needed, for him to move out of area. patient continues with defensive tone.
[2024-03-12] MEDS: diphenhydrAMINE HCL 25 MG CAPSULE 50 MG PO (23:33)
[2024-03-12] MEDS: LORazepam 1 MG TABLET 2 MG PO (23:33)
--- NOTE | 2024-03-13 07:13 | PC.NURSE ---
Assumed care of patient at 0645. Patient is observed sleeping in his bed. No signs of distress, breathing is even and unlabored. Will continue plan of care.
[2024-03-13 09:21] VITALS: BP 153/96; PULSE 76; RESP 18; TEMP 36.8; O2SAT 97
[2024-03-13] MEDS: Nicotine Polacrilex 2 MG GUM BUCCAL (09:31)
[2024-03-13] MEDS: LORazepam 1 MG TABLET 2 MG PO (11:31)
--- NOTE | 2024-03-13 11:34 | PC.NURSE ---
Nursing Communication PT approached nursing station requesting Ativan for anxiety. MD aware with orders.
[2024-03-13 13:06] VITALS: BP 144/84; PULSE 74; RESP 16; TEMP 37; O2SAT 98; BMI 40.5
--- NOTE | 2024-03-13 14:52 | MHC.CLN ---
NUTRITION CONSULT FOR REPORTED 15# OR MORE RECENT WEIGHT LOSS. EMR REVIEWED SHOWING WEIGHT HX: 03/13/24=124.284 KG; 03/11/24=128 KG; 01/16/23=129.6 KG. BMI=40.5, EXTREME OBESITY. WEIGHT HX DOES NOT SUPPORT SIGNIFICANT WEIGHT LOSS. NO ADDITIONAL NUTRITION INTERVENTIONS AT THIS TIME.
--- NOTE | 2024-03-13 15:06 | HO.PSYADMNOT ---
HPI Date of Service: 03/13/24 Chief Complaint: FOUND UNCNSCIOUS,NARCAN GIVEN,PT USED CRACK Sources of Information: patient interviewed, chart reviewed and crisis/core team assessment reviewed HPI Subjective Notes: Sanchez Warning and Conditional Voluntary Narrative: Mr. Barboza is a 33 year-old male with hx of cocaine use disorder, opioid use in remission who was brought via EMS after mother found him unresponsive. He was narcaned and by the time he arrived to ED, he was alert, and awake. Mother had reported concern in terms of this being an intentional OD, as pt told mother that he should not have been narcan. Pt recently from significant other and moved back to his mother's house about one month ago. His utox in the D was positive for cocaine, fentanyl, opioids. Pt reports he is currently from significant other. He reports he is not sure reason for his GF to want to take some time. He reports he is working towards being together again but again reports he is not sure why she is not happy with their relationship. He reports he had not used opioids in 4 years. He reports drug of choice is typically cocaine. He adamantly denies that using opioids was with intent to end his life. He does admit that he has been feeling more depressed since separation with GF. He denies VH or AH. No hx of prior psychiatric admission nor psychiatric treatment in the community. Pt is somewhat upset about being here on the unit and minimizing events leading to this admission. Past Psychiatric History: Inpt: none OP: none Past med trials: none Hx of suicide attempts: denies Medical Evaluation Reviewed: Yes [facility] Family History: denies Social History: pt currently staying with his mother. He from GF about one month ago. He has 3 children. 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 Substance History: cocaine: reports recent use weekly or biweekly OPioids: reports not having used in 4 years, but used heroin laced with fentanyl alcohol: denies Trauma History: not disclosed Diagnostics Vital Signs (24Hr): Vital Signs - 24 hr 03/13/24 09:21 03/13/24 13:06 Temperature 98.3 F 98.6 F Pulse Rate 76 74 Respiratory Rate 18 16 Blood Pressure 153/96 H 144/84 H Pulse Oximetry 97 98 Oxygen Delivery Method Room Air Room Air BMI result Body Mass Index 40.5 Labs 03/11/24 20:48 03/11/24 20:48 Labs: Laboratory Results - last 48 hr 03/11/24 03/12/24 20:48 20:48 WBC 17.4 H RBC 5.08 Hgb 14.9 Hct 44.2 MCV 87.0 MCH 29.3 MCHC 33.7 RDW 12.7 Plt Count 277 MPV 10.2 Immature Gran % (Auto) 0.5 H Neut % (Auto) 86.9 H Lymph % (Auto) 6.1 L [place] % (Auto) 6.1 Eos % (Auto) 0.1 Baso % (Auto) 0.3 Lymph # (Auto) 1.1 L [place] # (Auto) 1.1 Eos # (Auto) 0.0 Baso # (Auto) 0.1 Abs Immat Gran (auto) 0.09 H Absolute Neuts (auto) 15.1 H Absolute Nucleated RBC 0.000 Nucleated RBC % (auto) 0.0 Sodium 141 Potassium 4.2 Chloride 107 Carbon Dioxide 25 Anion Gap 13 BUN 11 Creatinine 0.84 Estim Creat Clear Calc 168.7 Estimated GFR > 60 Random Glucose 75 Calcium 9.1 Total Bilirubin 0.2 AST 26 ALT 32 Alkaline Phosphatase 81 Total Protein 7.5 Albumin 4.2 Urine Color Yellow Urine Appearance Turbid Urine pH 6.0 Ur Specific [place] 1.015 Urine Protein 100 (2+) H Urine Glucose (UA) 250 H Urine Ketones Negative Urine Blood Negative Urine Nitrite Negative Ur Leukocyte Esterase Negative Urine RBC 0-2 Urine WBC 0-5 Ur Squamous Epith Cells 0-2 Urine Bacteria None Seen Hyaline Casts 0-2 Salicylates < 5.0 L Urine Opiates Screen POSITIVE H Ur Buprenorphine Scrn Not Detected Ur Oxycodone Screen Not Detected Urine Methadone Screen Not Detected Urine Fentanyl Screen POSITIVE H Acetaminophen < 3 Ur Barbiturates Screen Not Detected Ur Phencyclidine Scrn Not Detected Ur Amphetamines Screen Not Detected U Benzodiazepines Scrn Not Detected Urine Cocaine Screen POSITIVE H U Marijuana (THC) Screen POSITIVE H Ethyl Alcohol < 10 Imaging Radiology Impressions: ITS Impressions Head CT 03/11/24 20:32 IMPRESSION: No acute intracranial pathology. Meds/Allergies Meds Home Medications ?Medication ?Instructions ?Recorded ?Confirmed ?Type albuterol sulfate 90 mcg/actuation 2 puff inhalation Q4-6H 03/12/24 03/12/24 History aerosol inhaler (Ventolin HFA) Allergies Allergies Allergy/AdvReac Type Severity Reaction Status Date / Time aspirin Allergy Shortness Verified 03/11/24 19:38 of Breath Mental Status Exam Mental Status Exam Narrative: Appearance: wearing hospital gown, fair hygiene, in NAD Behavior: guarded Psychomotor: no agitation or retardation noted Speech: clear, normal rate/rhythm/volume, spontaneous TP: mostly linear TC: wanting to be discharged, upset about other's concerns for overdose Mood: anxious Affect: irritable edge SI: denies HI: denies VH/AH: none Delusions: none Insight/judgment: poor x 2. memory/cog: alert, oriented x 3. grossly intact to conversational testing Assessment & Plan Assessment & Plan (1) Mood disorder: Status: Acute Code(s): F39 - Unspecified mood [affective] disorder (2) Cocaine use disorder, moderate, dependence: Status: Acute Code(s): F14.20 - Cocaine dependence, uncomplicated Plan Mr. Barboza is a 33 year-old male with hx of cocaine use, who was brought via EMS after he was found unresponsive by mother. He was narcaned and when he arrived to the hospital he was alert. He reported depressed mood after recent separation with GF about one month ago. He denid that it was a suicid attempt. however, mother reports he was upset with her for narcan him and also opioid not usually his substance of choice. Mother had also expressed concern that in the past month pt presenting as more hopeless and depressed with vague SI. On the unit, pt presents somewhat irritable, minimizing events leading to this admission. We discussed risks, benefits and alternative treatment options. Pt reports anxious mood more concerning than his substance use or his depression. He agreed to start topamax to decrease cocaine use. He also agreed to try clonidine for anxiety. PLAN 1. Admit to M3, CV, 3 day, 15 minutes checks for safety 2. start topamax 25mg po qhs 3. clonidine 0.1mg po BID for anxiety. 4. obtain collateral information 5. aftercare planning. Patient educated on: diagnosis, medication risk/benefits and substance abuse Reason for continued inpatient stay Substantial Risk for: harm to self Statement Statement: I have reviewed the history and physical and performed a pertinent examination on my patient. No changes have occurred unless specified. If the History and Physical was not performed prior to admission, the Hospitalist's service will be consulted for completing the admission physical. Time Spent With Patient Time: Total time managing care of this patient today ____ minutes.
--- NOTE | 2024-03-13 15:46 | PC.ADMIT ---
Ruben is a 33 y/o male admitted to [facility] at 1300 from the Pod on a CV for treatment of unspecified depressive d/o, opioid d/o and cocaine use d/o. Pt is currently living with grandparents after split from ex-girlfriend. Pt participated in admission and was pleasant. Per crisis evaluation pt presented to the ED secondary to a reported intentional overdose on heroin. Pt had to be narcan?d and was found at home by his mother unresponsive and with ?blue lips?. Pt was overheard by hospital staff in the ER telling his mother ?You should not have narcan?d me, you should have just let me go.? Pt reported to TW that ?I did not actively go out find drugs with the want to kill myself. I was feeling down and just was offered drugs and in a time of weakness and feeling like shit I decided to use. I wasn?t looking to overdose and end up here. I haven?t used in a really long time so I am not proud of this.? Pt reports feeling depressed and stressed over a recent breakup with his girlfriend. Pt currently denies SI or HI at this time. Pt denies AH or VH, no overt psychosis or expressed delusion reported or observed at this time. Thought process is linear, speech prosodic. Pt reports poor sleep and is used to using a weighted blanket. Pt reported a 15 lb weight loss recently, but unsure of when it occurred. Pt reports having asthma but has not had any issues for years. Pt tox screen was positive for opiates, cocaine, fentanyl, and marijuana. No withdrawal S&S. Pt reports past childhood trauma.? Pt was placed on 15 check for safety. Pt has an allergy to aspirin. Pt was compliant with skin check and clothing change control analyst. Visible skin intact, some raised red, ingrown hairs/pimples on abdomen and back. Pt WBC was 17.4. High glucose and protein in urine.
[2024-03-13] MEDS: Nicotine Polacrilex 2 MG GUM 4 MG BUCCAL ×4 (16:24→23:02)
[2024-03-13 16:33] VITALS: BP 142/72
[2024-03-13] MEDS: cloNIDine HCL 0.1 MG TABLET PO ×2 (16:33→20:28)
[2024-03-13 20:00] VITALS: BP 126/72; PULSE 88; RESP 16; TEMP 37.1; O2SAT 96
[2024-03-13 20:28] VITALS: BP 126/72
[2024-03-13] MEDS: Topiramate 25 MG TABLET PO (20:29)
[2024-03-13] MEDS: traZODone HCL 50 MG TABLET PO (23:01)
[2024-03-14 08:10] VITALS: BP 148/84; PULSE 77; RESP 16; TEMP 36.4; O2SAT 99
[2024-03-14 08:20] VITALS: BP 148/84
[2024-03-14] MEDS: cloNIDine HCL 0.1 MG TABLET PO ×2 (08:20→20:11)
[2024-03-14] MEDS: Nicotine Polacrilex 2 MG GUM 4 MG BUCCAL ×6 (08:23→20:21)
[2024-03-14 08:27] LABS: Cholesterol 195 mg/dL (<200); HDL Cholesterol 48 mg/dL (>40); LDL Cholesterol Calculated 115 mg/dL (<100); Triglycerides 163 mg/dL (<150)
[2024-03-14 08:41] LABS: Free T4 (Free Thyroxine) 0.86 ng/dL (0.71-1.85); Thyroid Stimulating Hormone 2.74 uIU/mL (0.32-4.0)
[2024-03-14 08:42] LABS: Estimated Average Glucose 105 mg/dL; Hemoglobin A1c % 5.3 % (<6.0)
[2024-03-14 09:08] LABS: Folate 5.9 ng/mL (> or = 4.0); Vitamin B12 574 pg/mL (200-900)
--- NOTE | 2024-03-14 11:07 | HO.PSYCHPN ---
Subjective Subjective Date of Service: 03/14/24 Reason For Visit: FOUND UNCNSCIOUS,NARCAN GIVEN,PT USED CRACK Subjective Notes: Conditional Voluntary Interim History: Patient was seen and discussed in rounds today. Records and plans were reviewed. He was able to talk about the incident that brought him to the hospital but appears to be minimizing it and denies any suicidal intent and states that he did not know that there was fentanyl in the heroin that he took. I also was able to talk to his mother with his permission and listened to her concerns. Current medications were reviewed. He denies any side effects. Slept last night. No signs of withdrawals. No changes were made today Review of Systems Review of Systems Yes all other systems are reviewed and are negative Mental Status Exam Mental Status Exam Narrative: In today's visit he is alert, oriented and pleasant. Normal speech. Good eye contact. Affect is appropriate and subdued. No signs of psychosis. No delusions. Denies any auditory or visual hallucinations. Cognitively is intact. Judgment is intact Diagnostics Vital Signs (24Hr): Vital Signs - 24 hr 03/13/24 13:06 03/13/24 16:33 03/13/24 20:00 Temperature 98.6 F 98.8 F Pulse Rate 74 88 Respiratory Rate 16 16 Blood Pressure 144/84 H 142/72 H 126/72 Pulse Oximetry 98 96 Oxygen Delivery Method Room Air Room Air 03/13/24 20:28 03/14/24 08:10 03/14/24 08:20 Temperature 97.5 F Pulse Rate 77 Respiratory Rate 16 Blood Pressure 126/72 148/84 H 148/84 H Pulse Oximetry 99 Oxygen Delivery Method Room Air BMI result Body Mass Index 40.5 Labs 03/11/24 20:48 03/11/24 20:48 Labs: Laboratory Results - last 48 hr 03/12/24 03/14/24 20:48 07:59 Estimat Average Glucose 105 Hemoglobin A1c % 5.3 Triglycerides 163 H Cholesterol 195 LDL Cholesterol, Calc 115 H HDL Cholesterol 48 Vitamin B12 574 Folate 5.9 TSH 2.74 Free T4 0.86 Urine Color Yellow Urine Appearance Turbid Urine pH 6.0 Ur Specific [place] 1.015 Urine Protein 100 (2+) H Urine Glucose (UA) 250 H Urine Ketones Negative Urine Blood Negative Urine Nitrite Negative Ur Leukocyte Esterase Negative Urine RBC 0-2 Urine WBC 0-5 Ur Squamous Epith Cells 0-2 Urine Bacteria None Seen Hyaline Casts 0-2 Imaging Radiology Impressions: ITS Impressions Head CT 03/11/24 20:32 IMPRESSION: No acute intracranial pathology. Medications Medications Current Medications Acetaminophen (Acetaminophen 325 Mg Tablet) 650 mg PO Q6H PRN PRN Reason: Headache/Pain Mild Scale (1-3) Al Hydroxide/Mg Hydroxide (Magnesium Hydrox/Alum Hydrox 30 Ml Oral.Susp) 30 ml PO Q6H PRN PRN Reason: Heartburn/Nausea Albuterol Sulfate (Albuterol Sulfate 90 Mcg 8 Gm Inhaler) 2 puff INHALE RQ4H PRN PRN Reason: Shortness of Breath Clonidine HCl (Clonidine Hcl 0.1 Mg Tablet) 0.1 mg PO BID KAROLYN; Protocol Last Admin: 03/14/24 08:20 Dose: 0.1 mg Hydroxyzine HCl (Hydroxyzine Hcl 25 Mg Tablet) 25 mg PO Q6H PRN PRN Reason: Anxiety Magnesium Hydroxide (Milk Of Magnesia 30 Ml Oral.Susp) 30 ml PO DAILY PRN PRN Reason: Constipation Nicotine Polacrilex (Nicotine Polacrilex 2 Mg Gum) 4 mg BUCCAL Q2H PRN PRN Reason: Nicotine Cravings Last Admin: 03/14/24 08:23 Dose: 4 mg Topiramate (Topiramate 25 Mg Tablet) 25 mg PO BEDTIME KAROLYN Last Admin: 03/13/24 20:29 Dose: 25 mg Trazodone HCl (Trazodone Hcl 50 Mg Tablet) 50 mg PO BEDTIME MRX1 PRN PRN Reason: Insomnia Last Admin: 03/13/24 23:01 Dose: 50 mg Allergies Allergies Allergy/AdvReac Type Severity Reaction Status Date / Time aspirin Allergy Shortness Verified 03/11/24 19:38 of Breath Assessment & Plan Assessment & Plan (1) Mood disorder: Status: Acute Code(s): F39 - Unspecified mood [affective] disorder (2) Cocaine use disorder, moderate, dependence: Status: Acute Code(s): F14.20 - Cocaine dependence, uncomplicated Plan Mr. Barboza is a 33 year-old male with hx of cocaine use, who was brought via EMS after he was found unresponsive by mother. He was narcaned and when he arrived to the hospital he was alert. He reported depressed mood after recent separation with GF about one month ago. He denid that it was a suicid attempt. however, mother reports he was upset with her for narcan him and also opioid not usually his substance of choice. Mother had also expressed concern that in the past month pt presenting as more hopeless and depressed with vague SI. On the unit, pt presents somewhat irritable, minimizing events leading to this admission. We discussed risks, benefits and alternative treatment options. Pt reports anxious mood more concerning than his substance use or his depression. He agreed to start topamax to decrease cocaine use. He also agreed to try clonidine for anxiety. PLAN 1. Admit to [facility], CV, 3 day, 15 minutes checks for safety 2. start topamax 25mg po qhs 3. clonidine 0.1mg po BID for anxiety. 4. obtain collateral information 5. aftercare planning. 03/14: Continue current treatment and plan Reason for continued inpatient stay Substantial Risk for: harm to self Time Spent With Patient Time: Total time managing care of this patient today ____ minutes.
[2024-03-14] MEDS: hydrOXYzine HCL 25 MG TABLET PO (11:35)
[2024-03-14] MEDS: QUEtiapine Fumarate 50 MG TABLET PO (11:59)
[2024-03-14 20:00] VITALS: BP 131/74; PULSE 100; RESP 18; TEMP 37.3; O2SAT 97
[2024-03-14] MEDS: Topiramate 25 MG TABLET PO (20:12)
[2024-03-14] MEDS: traZODone HCL 50 MG TABLET PO (20:21)
[2024-03-14] MEDS: QUEtiapine Fumarate 25 MG TABLET PO (20:22)
--- NOTE | 2024-03-15 08:13 | HO.PSYCHPN ---
Subjective Subjective Date of Service: 03/15/24 Reason For Visit: FOUND UNCNSCIOUS,NARCAN GIVEN,PT USED CRACK Subjective Notes: Conditional Voluntary Interim History: Patient was seen and discussed in rounds today. Records and plans were reviewed. He has been stable, out and about, interactive. He denies any suicidal ideations and continues to deny any suicidal intent when he overdosed and states that he did not know there was fentanyl in the. He does have a 3 day notice and. He is open to starting an antidepressant and I initiated Lexapro 10 mg daily. Side effects were reviewed. Eating and sleeping adequately. I talked to him about my conversation with his mother yesterday. Review of Systems Review of Systems Yes all other systems are reviewed and are negative Mental Status Exam Mental Status Exam Narrative: In today's visit he is alert, oriented and pleasant. Normal speech. Good eye contact. Affect is appropriate and subdued. No signs of psychosis. No delusions. Denies any auditory or visual hallucinations. He denies any suicidal or homicidal ideations. Cognitively is intact. Judgment is intact Diagnostics Vital Signs (24Hr): Vital Signs - 24 hr 03/14/24 08:20 03/14/24 20:00 Temperature 99.2 F Pulse Rate 100 Respiratory Rate 18 Blood Pressure 148/84 H 131/74 Pulse Oximetry 97 Oxygen Delivery Method Room Air BMI result Body Mass Index 40.5 Labs 03/11/24 20:48 03/11/24 20:48 Labs: Laboratory Results - last 48 hr 03/14/24 07:59 Estimat Average Glucose 105 Hemoglobin A1c % 5.3 Triglycerides 163 H Cholesterol 195 LDL Cholesterol, Calc 115 H HDL Cholesterol 48 Vitamin B12 574 Folate 5.9 TSH 2.74 Free T4 0.86 Imaging Radiology Impressions: ITS Impressions Head CT 03/11/24 20:32 IMPRESSION: No acute intracranial pathology. Medications Medications Current Medications Acetaminophen (Acetaminophen 325 Mg Tablet) 650 mg PO Q6H PRN PRN Reason: Headache/Pain Mild Scale (1-3) Al Hydroxide/Mg Hydroxide (Magnesium Hydrox/Alum Hydrox 30 Ml Oral.Susp) 30 ml PO Q6H PRN PRN Reason: Heartburn/Nausea Albuterol Sulfate (Albuterol Sulfate 90 Mcg 8 Gm Inhaler) 2 puff INHALE RQ4H PRN PRN Reason: Shortness of Breath Clonidine HCl (Clonidine Hcl 0.1 Mg Tablet) 0.1 mg PO BID KAROLYN; Protocol Last Admin: 03/14/24 20:11 Dose: 0.1 mg Hydroxyzine HCl (Hydroxyzine Hcl 25 Mg Tablet) 25 mg PO Q6H PRN PRN Reason: Anxiety Last Admin: 03/14/24 11:35 Dose: 25 mg Magnesium Hydroxide (Milk Of Magnesia 30 Ml Oral.Susp) 30 ml PO DAILY PRN PRN Reason: Constipation Nicotine Polacrilex (Nicotine Polacrilex 2 Mg Gum) 4 mg BUCCAL Q2H PRN PRN Reason: Nicotine Cravings Last Admin: 03/14/24 20:21 Dose: 4 mg Quetiapine Fumarate (Quetiapine Fumarate 25 Mg Tablet) 25 mg PO Q4H PRN PRN Reason: Anxiety Last Admin: 03/14/24 20:22 Dose: 25 mg Topiramate (Topiramate 25 Mg Tablet) 25 mg PO BEDTIME KAROLYN Last Admin: 03/14/24 20:12 Dose: 25 mg Trazodone HCl (Trazodone Hcl 50 Mg Tablet) 50 mg PO BEDTIME MRX1 PRN PRN Reason: Insomnia Last Admin: 03/14/24 20:21 Dose: 50 mg Allergies Allergies Allergy/AdvReac Type Severity Reaction Status Date / Time aspirin Allergy Shortness Verified 03/11/24 19:38 of Breath Assessment & Plan Assessment & Plan (1) Mood disorder: Status: Acute Code(s): F39 - Unspecified mood [affective] disorder (2) Cocaine use disorder, moderate, dependence: Status: Acute Code(s): F14.20 - Cocaine dependence, uncomplicated Plan Mr. Barboza is a 33 year-old male with hx of cocaine use, who was brought via EMS after he was found unresponsive by mother. He was narcaned and when he arrived to the hospital he was alert. He reported depressed mood after recent separation with GF about one month ago. He denid that it was a suicid attempt. however, mother reports he was upset with her for narcan him and also opioid not usually his substance of choice. Mother had also expressed concern that in the past month pt presenting as more hopeless and depressed with vague SI. On the unit, pt presents somewhat irritable, minimizing events leading to this admission. We discussed risks, benefits and alternative treatment options. Pt reports anxious mood more concerning than his substance use or his depression. He agreed to start topamax to decrease cocaine use. He also agreed to try clonidine for anxiety. PLAN 1. Admit to [facility], CV, 3 day, 15 minutes checks for safety 2. start topamax 25mg po qhs 3. clonidine 0.1mg po BID for anxiety. 4. obtain collateral information 5. aftercare planning. 03/14: Continue current treatment and plan 03/15: Continue current regimen and plans. Start Lexapro 10 mg daily. He will discuss getting outpatient connections tomorrow. Guardian/Caregiver educated on: diagnosis and medication risk/benefits Reason for continued inpatient stay Substantial Risk for: harm to self Time Spent With Patient Time: Total time managing care of this patient today ____ minutes.
[2024-03-15 08:15] VITALS: BP 131/68; PULSE 76; RESP 16; TEMP 36.9; O2SAT 97
[2024-03-15 08:19] VITALS: BP 131/68
[2024-03-15] MEDS: cloNIDine HCL 0.1 MG TABLET PO ×2 (08:19→21:02)
[2024-03-15] MEDS: QUEtiapine Fumarate 25 MG TABLET PO ×3 (08:20→17:32)
[2024-03-15] MEDS: Escitalopram Oxalate 10 MG TABLET PO (08:20)
[2024-03-15] MEDS: Nicotine Polacrilex 2 MG GUM 4 MG BUCCAL ×6 (08:21→22:46)
[2024-03-15] MEDS: hydrOXYzine HCL 25 MG TABLET PO ×2 (10:36→17:33)
[2024-03-15] MEDS: Topiramate 25 MG TABLET PO (21:00)
[2024-03-15 21:02] VITALS: BP 158/66
[2024-03-15 22:00] VITALS: BP 127/77; PULSE 95; RESP 16; TEMP 36.3; O2SAT 94
[2024-03-15] MEDS: traZODone HCL 50 MG TABLET PO (22:31)
[2024-03-16] MEDS: Nicotine Polacrilex 2 MG GUM 4 MG BUCCAL ×6 (06:49→23:09)
[2024-03-16] MEDS: hydrOXYzine HCL 25 MG TABLET PO ×2 (06:49→15:51)
[2024-03-16 07:47] VITALS: BP 143/82; PULSE 89; RESP 16; TEMP 36.8; O2SAT 96
[2024-03-16 08:43] VITALS: BP 143/82
[2024-03-16] MEDS: cloNIDine HCL 0.1 MG TABLET PO ×2 (08:43→22:15)
[2024-03-16] MEDS: Escitalopram Oxalate 10 MG TABLET PO (08:44)
[2024-03-16] MEDS: QUEtiapine Fumarate 25 MG TABLET PO ×3 (10:36→22:16)
--- NOTE | 2024-03-16 16:47 | P.DS_ITS ---
DS: Providers Provider Date of Service: 03/16/24 Date of admission: 03/13/24 11:45 Primary care physician: None Physician DS: Diagnosis Discharge Diagnosis (1) Mood disorder: Status: Acute (2) Cocaine use disorder, moderate, dependence: Status: Acute DS: Medications Discharge Medications Home Medications: Previous Rx's ?Medication ?Instructions ?Recorded albuterol sulfate 90 mcg/actuation 2 puff inhalation Q4-6H 30 days #1 03/16/24 aerosol inhaler (Ventolin HFA) inhaler clonidine HCl 0.1 mg tablet 0.1 mg PO BID 30 days #60 tabs 03/16/24 escitalopram oxalate 10 mg tablet 10 mg PO DAILY 30 days #30 tabs 03/16/24 trazodone 50 mg tablet 50 mg PO BEDTIME PRN Insomnia 30 03/16/24 days #30 tabs Mental Status Exam Mental Status Exam Narrative: In today's visit he is alert, oriented and pleasant. Normal speech. Good eye contact. Affect is appropriate and subdued. No signs of psychosis. No delusions. Denies any auditory or visual hallucinations. He denies any suicidal or homicidal ideations. Cognitively is intact. Judgment is intact Data Data Completed and Pending Completed studies during hospitalization [Text1]: 03/11/24 03/12/24 03/14/24 20:48 20:48 07:59 WBC 17.4 H RBC 5.08 Hgb 14.9 Hct 44.2 MCV 87.0 MCH 29.3 MCHC 33.7 RDW 12.7 Plt Count 277 MPV 10.2 Immature Gran % (Auto) 0.5 H Neut % (Auto) 86.9 H Lymph % (Auto) 6.1 L [place] % (Auto) 6.1 Eos % (Auto) 0.1 Baso % (Auto) 0.3 Lymph # (Auto) 1.1 L [place] # (Auto) 1.1 Eos # (Auto) 0.0 Baso # (Auto) 0.1 Abs Immat Gran (auto) 0.09 H Absolute Neuts (auto) 15.1 H Absolute Nucleated RBC 0.000 Nucleated RBC % (auto) 0.0 Sodium 141 Potassium 4.2 Chloride 107 Carbon Dioxide 25 Anion Gap 13 BUN 11 Creatinine 0.84 Estim Creat Clear Calc 168.7 Estimated GFR > 60 Random Glucose 75 Estimat Average Glucose 105 Hemoglobin A1c % 5.3 Calcium 9.1 Total Bilirubin 0.2 AST 26 ALT 32 Alkaline Phosphatase 81 Total Protein 7.5 Albumin 4.2 Triglycerides 163 H Cholesterol 195 LDL Cholesterol, Calc 115 H HDL Cholesterol 48 Vitamin B12 574 Folate 5.9 TSH 2.74 Free T4 0.86 Urine Color Yellow Urine Appearance Turbid Urine pH 6.0 Ur Specific [place] 1.015 Urine Protein 100 (2+) H Urine Glucose (UA) 250 H Urine Ketones Negative Urine Blood Negative Urine Nitrite Negative Ur Leukocyte Esterase Negative Urine RBC 0-2 Urine WBC 0-5 Ur Squamous Epith Cells 0-2 Urine Bacteria None Seen Hyaline Casts 0-2 Salicylates < 5.0 L Urine Opiates Screen POSITIVE H Ur Buprenorphine Scrn Not Detected Ur Oxycodone Screen Not Detected Urine Methadone Screen Not Detected Urine Fentanyl Screen POSITIVE H Acetaminophen < 3 Ur Barbiturates Screen Not Detected Ur Phencyclidine Scrn Not Detected Ur Amphetamines Screen Not Detected U Benzodiazepines Scrn Not Detected Urine Cocaine Screen POSITIVE H U Marijuana (THC) Screen POSITIVE H Ethyl Alcohol < 10 Imaging Diagnostic Imaging Impressions Head CT 03/11/24 20:32 IMPRESSION: No acute intracranial pathology. DS: Summary Hospital Course Hospital Course: per 03/13 admission note: Mr. Barboza is a 33 year-old male with hx of cocaine use disorder, opioid use in remission who was brought via EMS after mother found him unresponsive. He was narcaned and by the time he arrived to ED, he was alert, and awake. Mother had reported concern in terms of this being an intentional OD, as pt told mother that he should not have been narcan. Pt recently from significant ot her and moved back to his mother's house about one month ago. His utox in the D was positive for cocaine, fentanyl, opioids. Pt reports he is currently from significant other. He reports he is not sure reason for his GF to want to take some time. He reports he is working towards being together again but again reports he is not sure why she is not happy with their relationship. He reports he had not used opioids in 4 years. He reports drug of choice is typically cocaine. He adamantly denies that using opioids was with intent to end his life. He does admit that he has been feeling more depressed since separation with GF. He denies VH or AH. No hx of prior psychiatric admission nor psychiatric treatment in the community. Pt is somewhat upset about being here on the unit and minimizing events leading to this admission. Past Psychiatric History: Inpt: none OP: none Past med trials: none Hx of suicide attempts: denies Medical Evaluation Reviewed: Yes PMFSH Family History: denies Social History: pt currently staying with his mother. He from GF about one month ago. He has 3 children. 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 Barboza is a 33 year-old male with hx of cocaine use, who was brought via EMS after he was found unresponsive by mother. He was narcaned and when he arrived to the hospital he was alert. He reported depressed mood after recent separation with GF about one month ago. He denid that it was a suicid attempt. however, mother reports he was upset with her for narcan him and also opioid not usually his substance of choice. Mother had also expressed concern that in the past month pt presenting as more hopeless and depressed with vague SI. On the unit, pt presents somewhat irritable, minimizing events leading to this admission. We discussed risks, benefits and alternative treatment options. Pt reports anxious mood more concerning than his substance use or his depression. He agreed to start topamax to decrease cocaine use. He also agreed to try clonidine for anxiety. 03/13: Admit to [facility], CV, 3 day, 15 minutes checks for safety. start topamax 25mg po qhs. clonidine 0.1mg po BID for anxiety. obtain collateral information. aftercare planning. 03/14: Continue current treatment and plan 03/15: Continue current regimen and plans. Start Lexapro 10 mg daily. He will discuss getting outpatient connections tomorrow. 03/16: calm, cooperative, denying safety concerns. topamax DCed as not strongly indicated. meds reviewed, reconciled, prescribed. aftercare in place. 03/17: discharged as per plan. Time Spent with Patient Time attestation: Total time managing care of this patient today __40__ minutes. Discharge Plan Discharge Anticipated Discharge Date/Time: 03/17/24 11:00 Patient Disposition: Home, Self-Care Discharge Diagnosis: Anxiety Disorder NOS Depressive Disorder NOS Cocaine Use Disorder Referrals: Shanelle Holley (Therapy & Psychiatry) [Other] - 03/18/24 9:00 am (IN OFFICE APPOINTMENT -Please bring a photo ID and insurance card to the intake appointment. -Once you attend this intake appointment, you will be set up with a therapist and a psychiatrist moving forward. ) Inocencia Sal PA [Physician Drug And Alcohol Counsellor] - 06/15/24 10:10 am (PCP appt. confirmed for June 15 at 10:10am [address] [facility] will contact patient with an earlier appt. mor[place].) Discharge Medications: New clonidine HCl 0.1 mg Tablet 0.1 mg PO BID 30 Days Qty: 60 0RF Protocol: Hold for SBP< HOLD for SBP < : 90 trazodone 50 mg Tablet 50 mg PO BEDTIME PRN (Reason: Insomnia) 30 Days Qty: 30 0RF escitalopram oxalate 10 mg Tablet 10 mg PO DAILY 30 Days Qty: 30 0RF Continued albuterol sulfate [Ventolin HFA] 90 mcg/actuation HFA aerosol inhaler 2 puff inhalation Q4-6H 30 Days Qty: 1 0RF Discharge Orders: Discharge Order (Routine); Ordered 03/17/24 Ordered By: Jagdeep Espinoza Diet: Advance to usual diet Activity on Discharge: As tolerated Stand Alone Forms: Patient Portal Discharge page, Community Support Print Language: Turkmen Care Plan Goals: remain safe, stable, and sober in the outpatient treatment setting Health Concerns: none Plan of Treatment: take medications as prescribed, attend appointments as scheduled Assessment: not at imminent risk of harm to self or others Discharge Date/Time: 03/17/24 09:41
[2024-03-16 22:05] VITALS: BP 131/75; PULSE 100; RESP 18; TEMP 36.9; O2SAT 97
[2024-03-16] MEDS: traZODone HCL 50 MG TABLET PO (22:16)
[2024-03-17 07:48] VITALS: BP 156/93; PULSE 92; RESP 18; TEMP 35.6; O2SAT 96
[2024-03-17 08:43] VITALS: BP 156/93
[2024-03-17] MEDS: cloNIDine HCL 0.1 MG TABLET PO (08:43)
[2024-03-17] MEDS: Escitalopram Oxalate 10 MG TABLET PO (08:44)
[2024-03-17] MEDS: QUEtiapine Fumarate 25 MG TABLET PO (08:45)
== END 2024-03-17 09:41 | disposition home or self-care (01) | DRG 754 ==
LOC: HO.ED 03-12 17:15 → HO.PADLT16 03-13 11:53
PROVIDERS: Physician Assistant; Admitting Provider Psychiatry & Neurology Psychiatry; Emergency Provider Internal Medicine; Visit Provider Psychiatry & Neurology Psychiatry
DX: F32.A Depression, unspecified (principal); F14.20 Cocaine dependence, uncomplicated; F41.9 Anxiety disorder, unspecified; F17.210 Nicotine dependence, cigarettes, uncomplicated; Z71.6 Tobacco abuse counseling; Z79.899 Other long term (current) drug therapy
CPT/HCPCS: 36415; 70450; 80053; 80061; 80143; 80179; 80307; 81001; 82607; 82746; 83036; 84439; 84443; 85025; 93005; 99285; S9485

== ENCOUNTER → 2024-03-12 13:53 | Outpatient (BNV) | payer MEDICAID, SELFPAY | PROVIDERS: Emergency Provider Internal Medicine; Visit Provider Internal Medicine Cardiovascular Disease | DX: Z51.81 Encounter for therapeutic drug level monitoring (principal) | CPT/HCPCS: 93010 ==

== ENCOUNTER → 2024-03-13 11:45 | Outpatient (BNV) | payer OTHER, SELFPAY | PROVIDERS: Admitting Provider Psychiatry & Neurology Psychiatry; Emergency Provider Internal Medicine; Visit Provider Social Worker | DX: F39 Unspecified mood [affective] disorder (principal); F14.20 Cocaine dependence, uncomplicated | CPT/HCPCS: 99231; 99232 ==

== ENCOUNTER 2024-05-08 17:48 | Emergency (ER) | payer OTHER, SELFPAY ==
--- NOTE | 2024-05-08 17:50 | ECG_ITS ---
Test Reason : CHEST PAIN Blood Pressure : / mmHG Vent. Rate : 096 BPM Atrial Rate : 096 BPM P-R Int : 138 ms QRS Dur : 088 ms QT Int : 362 ms P-R-T Axes : 039 033 012 degrees QTc Int : 457 ms Normal sinus rhythm Possible Anterior infarct , age undetermined Abnormal ECG When compared with ECG of 12-MAR-2024 14:29, No significant change was found Referred By: Generic ED Physician Electronically Signed By:Rayray Campos
[2024-05-08 18:04] VITALS: BP 116/63; PULSE 90; RESP 20; TEMP 36.4; O2SAT 94; BMI 41.2
[2024-05-08 18:38] LABS: MANUAL DIFF FLAG NO
[2024-05-08 18:40] LABS: Basophils Absolute Auto 0.1 X10*3/uL (0.0-0.2); Basophils Percent Auto 0.7 % (0-2); Eosinophils Absolute Auto 0.2 X10*3/uL (0.0-0.4); Eosinophils Percent Auto 2.8 % (0-4); Hematocrit 44.2 % (42.0-52.0); Hemoglobin 15.2 g/dl (14.0-18.0); Imm Gran Abs Auto 0.03 X10*3/uL (0.00-0.03); Imm Gran Pct Auto 0.4 % (0.0-0.4); Lymphocytes Absolute Auto 2.5 X10*3/uL (1.2-4.9); Lymphocytes Percent Auto 29.5 % (20-40); Mean Corpuscular HGB Conc 34.4 g/dl (31.0-36.0); Mean Corpuscular Hemoglobin 29.5 pg (27.0-33.0); Mean Corpuscular Volume 85.8 fL (80.0-98.0); Mean Platelet Volume 9.7 fL (9.4-12.4); Monocytes Absolute Auto 0.5 X10*3/uL (0.1-1.2); Monocytes Percent Auto 6.5 % (2-11); Neutrophils Percent Auto 60.1 % (45-73); Platelet Count 250 X10*3/uL (160-400); Red Blood Count 5.15 X10*6/uL (4.60-5.80); Red Cell Distribution Width 12.7 % (11.0-16.0); White Blood Count 8.3 X10*3/uL (4.8-10.8)
[2024-05-08 18:54] LABS: Alanine Aminotransferase 33 U/L (0-40); Albumin Level 4.6 g/dL (3.5-5.0); Alkaline Phosphatase 85 U/L (39-117); Anion Gap 14 (12-20); Aspartate Amino Transferase 27 U/L (5-37); Bilirubin Total 0.3 mg/dL (0.0-1.0); Blood Urea Nitrogen 12 mg/dL (9-16); Calcium 9.3 mg/dL (8.4-10.2); Carbon Dioxide 24 mmol/L (22-29); Chloride 106 mmol/L (96-108); Creatinine Clr Calc Pharmacy 151.3; Estimated Glomerular Filt Rate > 60; Glucose Random 159 mg/dL (60-115); Lipase 35 U/L (8-78); Magnesium 2.5 mg/dL (1.6-2.6); Potassium 4.8 mmol/L (3.3-5.1); Sodium 139 mmol/L (135-145); Total Protein 7.5 g/dL (6.5-8.0)
[2024-05-08 19:02] LABS: Troponin-I High Sensitivity < 2.7 ng/L (<3.5-35.0)
[2024-05-08 19:06] VITALS: BP 133/78; PULSE 90; RESP 18; TEMP 36.6; O2SAT 96
[2024-05-08 19:27] LABS: Appearance Urine Cloudy; Color Urine Yellow; Glucose Urine UA Negative (Negative); Leukocyte Esterase Urine Negative (Negative); Nitrite Urine Negative (Negative); PH 5.5 (5.0-9.0); Specific Gravity - Urine >= 1.030 (1.005-1.025); UMIC TRIGGER UACC YES; Urine Blood Negative (Negative); Urine Ketones Negative (Negative); Urine Protein 30 (1+) mg/dL (Neg-Trace)
[2024-05-08] MEDS: 0.9 % Sodium Chloride 1,000 ML 999 ML IV ×2 (19:27→19:28)
[2024-05-08 19:30] LABS: Bacteria Urine None Seen (None Seen); Hyaline Casts Urine 0-2 /LPF (0-2); RBC Urine 0-2 /HPF (0-2); Squamous Epithelial Cell Urine 0-2 /HPF (0-2); WBC Urine 0-5 /HPF (0-5)
--- NOTE | 2024-05-08 19:32 | ED.CHESTPAIN ---
HPI - Chest Pain General Chief Complaint: Chest Pain Stated Complaint: chest pain, vomiting, loss of color Time Seen by Provider: 05/08/24 19:08 History of Present Illness HPI narrative: Patient is a 33-year-old male working out in the sun. Patient took a shower then started having some lightheadedness some chest pain. Some nausea. The symptoms got worse when he stood up. Improved upon lying down. Now feels much better. He has a history of hypertension. Currently on medication. History of vaping. No history of diabetes. No history of [place]. No family history of coronary artery disease. Related Data Previous Rx's ?Medication ?Instructions ?Recorded albuterol sulfate 90 mcg/actuation 2 puff inhalation Q4-6H 30 days #1 03/16/24 aerosol inhaler (Ventolin HFA) inhaler clonidine HCl 0.1 mg tablet 0.1 mg PO BID 30 days #60 tabs 03/16/24 escitalopram oxalate 10 mg tablet 10 mg PO DAILY 30 days #30 tabs 03/16/24 trazodone 50 mg tablet 50 mg PO BEDTIME PRN Insomnia 30 03/16/24 days #30 tabs Allergies Allergy/AdvReac Type Severity Reaction Status Date / Time almond Allergy Anaphylaxis Verified 05/08/24 18:07 aspirin Allergy Shortness Verified 05/08/24 18:07 of Breath Review of Systems Review of Systems: Positive generalized malaise nausea Yes all other systems are reviewed and are negative PMF Past Medical History Attestation statement: The following information was validated with the patient. Social History Social History Household Members: Family Housing: House Do you presently have visiting nurse or other home services: No Alcohol intake: never Patient Tobacco Use Status: Current everyday Tobacco user Tobacco use type: Cigarette Cigarette Packs Per Day: 1 Cigarettes Per Day: 20.0 Smoked in Last 30 Days: Yes e-Cigarette/Vaping Use: Currently Using Second Hand Smoke Exposure: No Use of substances other than those prescribed or required for medical reasons: Yes Substance Use Type: Marijuana Advance Directives: No Advance Directives Information Provided: No Do you have a plan to hurt others: No Plan service: No Sexual orientation: Straight/Heterosexual Physical Exam Vital Signs: Vital Signs: Last Vital Signs Temp 97.9 F 05/08/24 19:06 Pulse 90 05/08/24 19:06 Resp 18 05/08/24 19:06 BP 133/78 05/08/24 19:06 Pulse Ox 96 05/08/24 19:06 O2 Del Method Room Air 05/08/24 19:06 BMI result Body Mass Index 41.2 Appearance: Alert. Oriented X3. No acute distress. Eyes: Pupils equal, round and reactive to light. ENT: Pharynx normal. Neck: Normal inspection. Neck supple. No lymph nodes noted. No crepitus CVS: Normal heart rate and rhythm. Pulses normal. Normal S1 and S2 Respiratory: No respiratory distress. Breath sounds normal. No Wheezing. No rales Abdomen: Soft and nontender. No rigidity. No distention. good BS x4 Skin: Skin warm and dry. Normal skin color. Normal skin turgor. Extremities: No lower extremity edema. Neurovascular intact to all extremities. No Lacerations. No Rash Neuro: Oriented X 3. No motor deficit. No sensory deficit. Moving all extermities. No slurred speech Medications Administered Generic Name Dose Route Start Last Admin Trade Name Freq PRN Reason Stop Dose Admin Sodium Chloride 1,000 mls @ 999 mls/hr 05/08/24 19:30 05/08/24 19:27 Ns IV 05/08/24 20:30 999 mls/hr .Q1H1M KAROLYN Administration Sodium Chloride 1,000 mls @ 999 mls/hr 05/08/24 19:30 05/08/24 19:28 Ns IV 05/08/24 20:30 999 mls/hr .Q1H1M KAROLYN Administration Medical Decision Making Medical Decision Making [facility] Narrative: Patient well appearing no acute distress. My interpretation patient's EKG showed a sinus rhythm heart rate is 100 CA QRS QTC normal there has no acute ST segment elevation. Patient was out in the hot sun. Had decreased p.o. intake. [place] nauseous. Subsequently felt very lightheaded. He denies using any cocaine recently. Had a previous history of cocaine use. No suicidal homicidal intent. First set of cardiac enzyme is negative. Will get a 2nd set of enzymes will give additional fluids and check orthostatics. Currently in no distress. Two sets of cardiac enzymes are negative. Patient well-appearing. Symptoms seems to have resolved. There has no ketones in the urine. No gross blood in the urine. Hemoglobin is negative. Tox screen positive only for marijuana. Patient's alcohol was 101. Explained to patient the need to hydrate. Patient claims he drank alcohol after he got home. Differential Diagnosis Differential Diagnoses: The differential diagnosis associated with the presentation includes Alcohol intoxication. Marijuana use. Dehydration. Vasovagal syncope. Syncope. Lab Data MDM Lab Attestation statement: I reviewed the patient's lab results. 05/08/24 18:34 05/08/24 18:34 Labs: Lab Results 05/08/24 05/08/24 05/08/24 Range/Units 18:34 19:17 19:34 WBC 8.3 (4.8-10.8) X10*3/uL RBC 5.15 (4.60-5.80) X10*6/uL Hgb 15.2 (14.0-18.0) g/dl Hct 44.2 (42.0-52.0) % MCV 85.8 (80.0-98.0) fL MCH 29.5 (27.0-33.0) pg MCHC 34.4 (31.0-36.0) g/dl RDW 12.7 (11.0-16.0) % Plt Count 250 (160-400) X10*3/uL MPV 9.7 (9.4-12.4) fL Immature Gran % (Auto) 0.4 (0.0-0.4) % Neut % (Auto) 60.1 (45-73) % Lymph % (Auto) 29.5 (20-40) % [place] % (Auto) 6.5 (2-11) % Eos % (Auto) 2.8 (0-4) % Baso % (Auto) 0.7 (0-2) % Lymph # (Auto) 2.5 (1.2-4.9) X10*3/uL [place] # (Auto) 0.5 (0.1-1.2) X10*3/uL Eos # (Auto) 0.2 (0.0-0.4) X10*3/uL Baso # (Auto) 0.1 (0.0-0.2) X10*3/uL Abs Immat Gran (auto) 0.03 (0.00-0.03) X10*3/uL Absolute Neuts (auto) 5.0 (2.0-8.3) x10*3/uL Absolute Nucleated RBC 0.000 (0.0-0.012) X10*3/uL Nucleated RBC % (auto) 0.0 (0.0-0.2) /100WBC Sodium 139 (135-145) mmol/L Potassium 4.8 (3.3-5.1) mmol/L Chloride 106 (96-108) mmol/L Carbon Dioxide 24 (22-29) mmol/L Anion Gap 14 (12-20) BUN 12 (9-16) mg/dL Creatinine 0.96 (0.5-1.4) mg/dL Estim Creat Clear Calc 151.3 Estimated GFR > 60 Random Glucose 159 H (60-115) mg/dL Calcium 9.3 (8.4-10.2) mg/dL Magnesium 2.5 (1.6-2.6) mg/dL Total Bilirubin 0.3 (0.0-1.0) mg/dL AST 27 (5-37) U/L ALT 33 (0-40) U/L Alkaline Phosphatase 85 (39-117) U/L Troponin I High Sens < 2.7 < 2.7 (<3.5-35.0) ng/L Total Protein 7.5 (6.5-8.0) g/dL Albumin 4.6 (3.5-5.0) g/dL Lipase 35 (8-78) U/L Urine Color Yellow Urine Appearance Cloudy Urine pH 5.5 (5.0-9.0) Ur Specific [place] >= 1.030 H (1.005-1.025) Urine Protein 30 (1+) H (Neg-Trace) mg/dL Urine Glucose (UA) Negative (Negative) mg/dL Urine Ketones Negative (Negative) mg/dL Urine Blood Negative (Negative) Urine Nitrite Negative (Negative) Ur Leukocyte Esterase Negative (Negative) Urine RBC 0-2 (0-2) /HPF Urine WBC 0-5 (0-5) /HPF Ur Squamous Epith Cells 0-2 (0-2) /HPF Urine Bacteria None Seen (None Seen) Hyaline Casts 0-2 (0-2) /LPF Urine Opiates Screen (Not Detect) Ur Buprenorphine Scrn (Not Detect) ng/mL Ur Oxycodone Screen (Not Detect) ng/mL Urine Methadone Screen (Not Detect) ng/mL Urine Fentanyl Screen (Not Detect) Ur Barbiturates Screen (Not Detect) Ur Phencyclidine Scrn (Not Detect) Ur Amphetamines Screen (Not Detect) U Benzodiazepines Scrn (Not Detect) Urine Cocaine Screen (Not Detect) U Marijuana (THC) Screen (Not Detect) Ethyl Alcohol 101 mg/dL 05/08/24 Range/Units 19:48 WBC (4.8-10.8) X10*3/uL RBC (4.60-5.80) X10*6/uL Hgb (14.0-18.0) g/dl Hct (42.0-52.0) % MCV (80.0-98.0) fL MCH (27.0-33.0) pg MCHC (31.0-36.0) g/dl RDW (11.0-16.0) % Plt Count (160-400) X10*3/uL MPV (9.4-12.4) fL Immature Gran % (Auto) (0.0-0.4) % Neut % (Auto) (45-73) % Lymph % (Auto) (20-40) % [place] % (Auto) (2-11) % Eos % (Auto) (0-4) % Baso % (Auto) (0-2) % Lymph # (Auto) (1.2-4.9) X10*3/uL [place] # (Auto) (0.1-1.2) X10*3/uL Eos # (Auto) (0.0-0.4) X10*3/uL Baso # (Auto) (0.0-0.2) X10*3/uL Abs Immat Gran (auto) (0.00-0.03) X10*3/uL Absolute Neuts (auto) (2.0-8.3) x10*3/uL Absolute Nucleated RBC (0.0-0.012) X10*3/uL Nucleated RBC % (auto) (0.0-0.2) /100WBC Sodium (135-145) mmol/L Potassium (3.3-5.1) mmol/L Chloride (96-108) mmol/L Carbon Dioxide (22-29) mmol/L Anion Gap (12-20) BUN (9-16) mg/dL Creatinine (0.5-1.4) mg/dL Estim Creat Clear Calc Estimated GFR Random Glucose (60-115) mg/dL Calcium (8.4-10.2) mg/dL Magnesium (1.6-2.6) mg/dL Total Bilirubin (0.0-1.0) mg/dL AST (5-37) U/L ALT (0-40) U/L Alkaline Phosphatase (39-117) U/L Troponin I High Sens (<3.5-35.0) ng/L Total Protein (6.5-8.0) g/dL Albumin (3.5-5.0) g/dL Lipase (8-78) U/L Urine Color Urine Appearance Urine pH (5.0-9.0) Ur Specific [place] (1.005-1.025) Urine Protein (Neg-Trace) mg/dL Urine Glucose (UA) (Negative) mg/dL Urine Ketones (Negative) mg/dL Urine Blood (Negative) Urine Nitrite (Negative) Ur Leukocyte Esterase (Negative) Urine RBC (0-2) /HPF Urine WBC (0-5) /HPF Ur Squamous Epith Cells (0-2) /HPF Urine Bacteria (None Seen) Hyaline Casts (0-2) /LPF Urine Opiates Screen Not Detected (Not Detect) Ur Buprenorphine Scrn Not Detected (Not Detect) ng/mL Ur Oxycodone Screen Not Detected (Not Detect) ng/mL Urine Methadone Screen Not Detected (Not Detect) ng/mL Urine Fentanyl Screen Not Detected (Not Detect) Ur Barbiturates Screen Not Detected (Not Detect) Ur Phencyclidine Scrn Not Detected (Not Detect) Ur Amphetamines Screen Not Detected (Not Detect) U Benzodiazepines Scrn Not Detected (Not Detect) Urine Cocaine Screen Not Detected (Not Detect) U Marijuana (THC) Screen POSITIVE H (Not Detect) Ethyl Alcohol mg/dL Independent Interpretation I performed an independent interpretation of an: EKG (My interpretation patient's EKG showed a sinus rhythm heart rate is 100 CA QRS QTC normal there is no acute ST segment elevation.) Independent Historian Clinical information obtained from an independent historian. History obtained from or confirmed by: Parent Chronic Conditions Previous history of polysubstance abuse Discharge Plan Discharge Clinical Impression: Dehydration, Syncope, vasovagal, Alcohol use Patient Disposition: Home, Self-Care Instructions: Syncope (ED), Dehydration (ED), Alcohol Intoxication (ED) Prescriptions: No Action clonidine HCl 0.1 mg Tablet 0.1 mg PO BID 30 Days Qty: 60 0RF Protocol: Hold for SBP< HOLD for SBP < : 90 trazodone 50 mg Tablet 50 mg PO BEDTIME PRN (Reason: Insomnia) 30 Days Qty: 30 0RF escitalopram oxalate 10 mg Tablet 10 mg PO DAILY 30 Days Qty: 30 0RF albuterol sulfate [Ventolin HFA] 90 mcg/actuation HFA aerosol inhaler 2 puff inhalation Q4-6H 30 Days Qty: 1 0RF Referrals: Physician,Unknown J [Primary Care Provider] - (Please follow-up with your doctor on an outpatient basis.) Print Language: French
[2024-05-08 20:05] LABS: Amphetamine Screen Urine Not Detected (Not Detect); Barbiturates, Urine Not Detected (Not Detect); Benzodiazepines Screen Urine Not Detected (Not Detect); Buprenorphine Scr Not Detected (Not Detect); Cannabinoid Screen Urine POSITIVE (Not Detect); Cocaine Screen Urine Not Detected (Not Detect); Fentanyl, urine Not Detected (Not Detect); Methadone Screen, Urine Not Detected (Not Detect); Opiate Screen Urine Not Detected (Not Detect); Oxycodone Screen Urine Not Detected (Not Detect); Phencyclidine Screen Urine Not Detected (Not Detect)
[2024-05-08 20:09] LABS: Ethanol 101 mg/dL
[2024-05-08 20:18] LABS: Troponin-I High Sensitivity < 2.7 ng/L (<3.5-35.0)
[2024-05-08 21:08] VITALS: BP 128/72; PULSE 85; RESP 16; TEMP 36.7; O2SAT 98
== END 2024-05-08 21:09 | disposition home or self-care (01) ==
PROVIDERS: Nurse Practitioner Family; Emergency Provider Emergency Medicine Emergency Medical Services
DX: E86.0 Dehydration (principal); R55 Syncope and collapse; F10.90 Alcohol use, unspecified, uncomplicated; Y90.5 Blood alcohol level of 100-119 mg/100 ml; R42 Dizziness and giddiness; R07.9 Chest pain, unspecified; I10 Essential (primary) hypertension; F17.210 Nicotine dependence, cigarettes, uncomplicated; F19.10 Other psychoactive substance abuse, uncomplicated; F14.20 Cocaine dependence, uncomplicated; Z79.899 Other long term (current) drug therapy
CPT/HCPCS: 36415; 80053; 80307; 81001; 83690; 83735; 84484; 85025; 93005; 99282; 99283; 99285

== ENCOUNTER → 2024-05-08 17:50 | Outpatient (BNV) | payer OTHER, SELFPAY | PROVIDERS: Emergency Provider Emergency Medicine Emergency Medical Services; Visit Provider Internal Medicine Cardiovascular Disease | DX: R94.31 Abnormal electrocardiogram [ECG] [EKG] (principal) | CPT/HCPCS: 93010 ==

== ENCOUNTER 2024-05-24 21:25 | Emergency (ER) | payer OTHER, SELFPAY ==
--- NOTE | ~2024-05-24 | XR_ITS ---
EXAMINATION: XR CHEST CLINICAL INFORMATION: Shortness of breath; history of asthma. COMPARISON: Chest radiographs dated 01/14/2023. TECHNIQUE: Frontal view of the chest was obtained. FINDINGS: The heart, great vessels, pulmonary vasculature and mediastinum are stable. The lungs show no infiltrate, effusion or pneumothorax. There is mild bronchial wall thickening. There is no acute osseous abnormality. There is an old, healed posterolateral left ninth rib fracture. XR/XR chest 1V IMPRESSION: 1. No focal infiltrate or congestive heart failure is seen. 2. There is mild bilateral bronchial wall thickening, consistent with the provided history of asthma.
[2024-05-24 21:27] VITALS: BP 130/65; PULSE 67; RESP 18; TEMP 36.8; O2SAT 94; BMI 41.8
--- NOTE | 2024-05-24 21:31 | ECG_ITS ---
Test Reason : SOB Blood Pressure : / mmHG Vent. Rate : 069 BPM Atrial Rate : 069 BPM P-R Int : 146 ms QRS Dur : 088 ms QT Int : 392 ms P-R-T Axes : 011 054 011 degrees QTc Int : 420 ms Normal sinus rhythm Normal ECG When compared with ECG of 08-MAY-2024 17:48, No significant change was found Referred By: Generic ED Physician Electronically Signed By:Rayray Campos
[2024-05-24 21:43] LABS: MANUAL DIFF FLAG NO
[2024-05-24 21:44] LABS: Basophils Absolute Auto 0.1 X10*3/uL (0.0-0.2); Basophils Percent Auto 0.5 % (0-2); Eosinophils Absolute Auto 0.4 X10*3/uL (0.0-0.4); Eosinophils Percent Auto 4.3 % (0-4); Hematocrit 37.7 % (42.0-52.0); Imm Gran Abs Auto 0.03 X10*3/uL (0.00-0.03); Imm Gran Pct Auto 0.3 % (0.0-0.4); Lymphocytes Absolute Auto 2.4 X10*3/uL (1.2-4.9); Lymphocytes Percent Auto 26.3 % (20-40); Mean Corpuscular HGB Conc 34.5 g/dl (31.0-36.0); Mean Corpuscular Volume 86.9 fL (80.0-98.0); Monocytes Absolute Auto 0.7 X10*3/uL (0.1-1.2); Neutrophils Absolute Auto 5.7 x10*3/uL (2.0-8.3); Neutrophils Percent Auto 61.6 % (45-73); Platelet Count 214 X10*3/uL (160-400); Red Blood Count 4.34 X10*6/uL (4.60-5.80); White Blood Count 9.2 X10*3/uL (4.8-10.8)
--- NOTE | 2024-05-24 21:49 | ED_ITS ---
HPI - Asthma General Chief Complaint: Asthma Stated Complaint: sob Time Seen by Provider: 05/24/24 21:42 Source: patient Mode of arrival: ambulatory Limitations: no limitations History of Present Illness ED Provider: Dr. Kathryn Hill HPI Narrative: Patient comes to the emergency room requesting an inhaler and asthma medications to last him until the end of May. Patient states that he has been doing out yd work and it triggers his asthma. Patient states that this time he has no having any wheezing or shortness of breath or chest tightness. However, during the day when he is doing yd work he gets worse. Patient denies any URI or UTI symptoms. No chest pain. Related Data Previous Rx's ?Medication ?Instructions ?Recorded albuterol sulfate 90 mcg/actuation 2 puff inhalation Q4-6H 30 days #1 03/16/24 aerosol inhaler (Ventolin HFA) inhaler clonidine HCl 0.1 mg tablet 0.1 mg PO BID 30 days #60 tabs 03/16/24 escitalopram oxalate 10 mg tablet 10 mg PO DAILY 30 days #30 tabs 03/16/24 trazodone 50 mg tablet 50 mg PO BEDTIME PRN Insomnia 30 03/16/24 days #30 tabs albuterol sulfate 2.5 mg/3 mL 2.5 mg (3 mL) inhalation Q4-6H PRN 05/24/24 (0.083 %) solution for nebulization shortness of breath or wheezing #180 mL albuterol sulfate 90 mcg/actuation 2 puff inhalation Q4-6H PRN 05/24/24 aerosol inhaler shortness of breath or wheezing #8.5 grams prednisone 50 mg tablet 50 mg PO DAILY #4 tabs 05/24/24 Allergies Allergy/AdvReac Type Severity Reaction Status Date / Time almond Allergy Anaphylaxis Verified 05/24/24 21:29 aspirin Allergy Shortness Verified 05/24/24 21:29 of Breath Review of Systems 2 Review of Systems: Constitutional : No Weight loss, No Fever, No Chills, No Night Sweats, No Fatigue, No Malaise ENT/Mouth : No Hearing loss, No Ear Pain, No Nasal Congestion, No Sinus Pain, No Hoarseness, No sore throat, No Rhinorrhea, No Swallowing Difficulty Eyes: No Eye Pain, No Swelling, No Redness, No Foreign Body, No Discharge, No Vision Changes Cardiovascular : No Chest Pain, No SOB, No Dyspnea on Exertion, No Orthopnea, No Edema, No Palpitations Respiratory : Complaining of intermittent wheezing and shortness of breath, not at this time. Gastrointestinal : No Nausea, No Vomiting, No Diarrhea, No Constipation, No abdominal Pain, No Hematochezia, No Melena Genitourinary : no irregular bleeding, No Dysuria, No Urinary Frequency, No Hematuria, No Urinary Incontinence, No Urgency, No Flank Pain, No Urinary Flow Changes, No Hesitancy Musculoskeletal : No joint pain, No Myalgias, No Joint Swelling Skin : No Skin Lesions, No rash Neuro : No Weakness, No Numbness, No Paresthesias, No Loss of Consciousness, No Dizziness, No Headache Psych : No Anxiety/Panic, No Depression, No SI/HI/AH/VH, No Social Issues, Heme/Lymph: No Bruising, No Bleeding,No Lymphadenopathy Endocrine : No Polyuria, No Polydipsia, No Temperature Intolerance REPLACED BY [facility] Social History Social History Household Members: Family Housing: House Do you presently have visiting nurse or other home services: No Alcohol intake: never Patient Tobacco Use Status: Current everyday Tobacco user Tobacco use type: Cigarette Cigarette Packs Per Day: 1 Cigarettes Per Day: 20.0 e-Cigarette/Vaping Use: Currently Using Second Hand Smoke Exposure: No Substance Use Type: Marijuana Advance Directives: No Advance Directives Information Provided: No service: No Sexual orientation: Straight/Heterosexual Physical Exam 2 Vital Signs: Vital Signs: Last Vital Signs Temp 98.2 F 05/24/24 21:27 Pulse 67 05/24/24 21:27 Resp 18 05/24/24 21:27 BP 130/65 05/24/24 21:27 Pulse Ox 94 05/24/24 21:27 O2 Del Method Room Air 05/24/24 21:27 BMI result Body Mass Index 41.8 Const: Other: Appearance: Alert. Oriented X3. No acute distress. Eyes: Pupils equal, round and reactive to light. ENT: Pharynx normal. Neck: Normal inspection. Neck supple. No lymph nodes noted. No crepitus CVS: Normal heart rate and rhythm. Pulses normal. Normal S1 and S2 Respiratory: No respiratory distress. Breath sounds normal. No Wheezing. No rales Abdomen: Soft and nontender. No rigidity. No distention. Skin: Skin warm and dry. Normal skin color. Normal skin turgor. Extremities: No lower extremity edema. No Lacerations. No Rash Neuro: Oriented X 3. No motor deficit. No sensory deficit. Moving all extremities. No slurred speech. CN 2 through 12 grossly intact Psych: calm, cooperative, normal affect Medical Decision Making Medical Decision Making [facility] Narrative: -at this time, patient is asymptomatic. Patient was given the 1st dose of p.o. prednisone. Lab Data 05/24/24 21:38 05/24/24 21:38 Labs: Lab Results 05/24/24 Range/Units 21:38 WBC 9.2 (4.8-10.8) X10*3/uL RBC 4.34 L (4.60-5.80) X10*6/uL Hgb 13.0 L (14.0-18.0) g/dl Hct 37.7 L (42.0-52.0) % MCV 86.9 (80.0-98.0) fL MCH 30.0 (27.0-33.0) pg MCHC 34.5 (31.0-36.0) g/dl RDW 13.0 (11.0-16.0) % Plt Count 214 (160-400) X10*3/uL MPV 10.0 (9.4-12.4) fL Immature Gran % (Auto) 0.3 (0.0-0.4) % Neut % (Auto) 61.6 (45-73) % Lymph % (Auto) 26.3 (20-40) % [place] % (Auto) 7.0 (2-11) % Eos % (Auto) 4.3 H (0-4) % Baso % (Auto) 0.5 (0-2) % Lymph # (Auto) 2.4 (1.2-4.9) X10*3/uL [place] # (Auto) 0.7 (0.1-1.2) X10*3/uL Eos # (Auto) 0.4 (0.0-0.4) X10*3/uL Baso # (Auto) 0.1 (0.0-0.2) X10*3/uL Abs Immat Gran (auto) 0.03 (0.00-0.03) X10*3/uL Absolute Neuts (auto) 5.7 (2.0-8.3) x10*3/uL Absolute Nucleated RBC 0.000 (0.0-0.012) X10*3/uL Nucleated RBC % (auto) 0.0 (0.0-0.2) /100WBC Discharge Plan Discharge Clinical Impression: Asthma Patient Disposition: Home, Self-Care Instructions: Asthma (ED) Additional Instructions: Please follow-up with your primary care physician tomorrow. If you have any worsening or new symptoms, please return to the emergency room or call 911 Prescriptions: New prednisone 50 mg tablet 50 mg PO DAILY Qty: 4 0RF albuterol sulfate 90 mcg/actuation HFA aerosol inhaler 2 puff inhalation Q4-6H PRN (Reason: shortness of breath or wheezing) Qty: 8.5 2RF albuterol sulfate 2.5 mg /3 mL (0.083 %) solution for nebulization 2.5 mg inhalation Q4-6H PRN (Reason: shortness of breath or wheezing) Qty: 180 0RF No Action clonidine HCl 0.1 mg Tablet 0.1 mg PO BID 30 Days Qty: 60 0RF Protocol: Hold for SBP< HOLD for SBP < : 90 trazodone 50 mg Tablet 50 mg PO BEDTIME PRN (Reason: Insomnia) 30 Days Qty: 30 0RF escitalopram oxalate 10 mg Tablet 10 mg PO DAILY 30 Days Qty: 30 0RF albuterol sulfate [Ventolin HFA] 90 mcg/actuation HFA aerosol inhaler 2 puff inhalation Q4-6H 30 Days Qty: 1 0RF Print Language: Polish
[2024-05-24 21:56] LABS: Anion Gap 13 (12-20); Blood Urea Nitrogen 13 mg/dL (9-16); Calcium 9.2 mg/dL (8.4-10.2); Carbon Dioxide 26 mmol/L (22-29); Chloride 108 mmol/L (96-108); Creatinine Clr Calc Pharmacy 139.3; Estimated Glomerular Filt Rate > 60; Glucose Random 130 mg/dL (60-115); Potassium 3.9 mmol/L (3.3-5.1); Sodium 143 mmol/L (135-145)
[2024-05-24 22:05] LABS: Troponin-I High Sensitivity < 2.7 ng/L (<3.5-35.0)
[2024-05-24 22:07] LABS: B Type Natriuretic Peptide 50 pg/mL (<100)
[2024-05-24 22:09] VITALS: BP 117/55; PULSE 64; RESP 16; TEMP 36.8; O2SAT 96
[2024-05-24 22:12] VITALS: BP 117/55; PULSE 64; RESP 16; TEMP 36.8; O2SAT 96
== END 2024-05-24 22:15 | disposition home or self-care (01) ==
PROVIDERS: Emergency Provider Emergency Medicine
DX: J45.909 Unspecified asthma, uncomplicated (principal); R06.02 Shortness of breath; Z79.899 Other long term (current) drug therapy
CPT/HCPCS: 36415; 71045; 80048; 83880; 84484; 85025; 93005; 99285

== ENCOUNTER → 2024-05-24 21:31 | Outpatient (BNV) | payer OTHER, SELFPAY | PROVIDERS: Emergency Provider Emergency Medicine; Visit Provider Internal Medicine Cardiovascular Disease | DX: R06.02 Shortness of breath (principal) | CPT/HCPCS: 93010 ==

== ENCOUNTER 2024-10-09 16:24 | Emergency (ER) | payer OTHER, SELFPAY ==
--- NOTE | ~2024-10-09 | CT_ITS ---
EXAMINATION: CT HEAD WITHOUT CONTRAST CLINICAL INFORMATION: Headache, fall TECHNIQUE: Contiguous axial imaging was performed from the skull base to vertex without intravenous administration of contrast. All CT exams at this location are performed using dose optimization techniques as appropriate to a performed exam including at least one of the following: * Automated exposure control * Adjustment of the mA and/or kV according to patient size (this includes techniques or standardized protocols for targeted exams where dose is matched to indication / reason for exam; i/e/ extremities or head) * Use of iterative reconstructive technique DLP: 755 mGy-cm COMPARISON: 03/11/2024 FINDINGS: There is no evidence of acute intracranial hemorrhage, acute large vessel infarct, midline shift or mass effect. The gonsalez-white differentiation is preserved. The ventricles and sulci are within normal limits in size and configuration. There is no evidence of hydrocephalus. There are no extraaxial collections. Osseous structures are intact. Paranasal sinuses and mastoid air cells are well aerated. CT/CT head/brain wo IV con IMPRESSION: Unremarkable non-contrast CT of the brain. Electronically signed by: Shahid Dawkins MD 10/10/2024 12:18 AM [facility] [place]
--- NOTE | ~2024-10-09 | XR_ITS ---
EXAMINATION: XR CHEST CLINICAL INFORMATION: Hypoxia, possible OD vs aspiration? COMPARISON: 05/24/2024 TECHNIQUE: Frontal view of the chest was obtained. FINDINGS: No significant abnormality is noted involving the heart, lungs, mediastinum, bony thorax or soft tissues. XR/XR chest 1V IMPRESSION: Unremarkable examination. Electronically signed by: Shahid Dawkins MD 10/10/2024 12:16 AM [facility] [place]
[2024-10-09 16:39] VITALS: BP 144/102; PULSE 95; RESP 19; TEMP 36.6; O2SAT 98; BMI 34.4
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
--- NOTE | 2024-10-09 16:43 | ECG_ITS ---
Test Reason : loc Blood Pressure : / mmHG Vent. Rate : 079 BPM Atrial Rate : 079 BPM P-R Int : 156 ms QRS Dur : 082 ms QT Int : 382 ms P-R-T Axes : 020 037 048 degrees QTc Int : 438 ms Normal sinus rhythm Possible Left atrial enlargement Borderline ECG When compared with ECG of 24-MAY-2024 21:29, No significant change was found Referred By: Anjel Garcia Electronically Signed By:LAURO MCDANIEL MD
[2024-10-09 18:32] LABS: MANUAL DIFF FLAG NO
[2024-10-09 18:53] LABS: Alanine Aminotransferase 49 U/L (0-40); Albumin Level 4.8 g/dL (3.5-5.0); Alkaline Phosphatase 96 U/L (39-117); Anion Gap 16 (12-20); Aspartate Amino Transferase 43 U/L (5-37); Bilirubin Total 0.6 mg/dL (0.0-1.0); Blood Urea Nitrogen 11 mg/dL (9-16); Calcium 9.5 mg/dL (8.4-10.2); Carbon Dioxide 27 mmol/L (22-29); Chloride 103 mmol/L (96-108); Creatinine Clr Calc Pharmacy 150.5; Estimated Glomerular Filt Rate > 60; Glucose Random 90 mg/dL (60-115); Lipase 16 U/L (8-78); Potassium 4.7 mmol/L (3.3-5.1); Sodium 141 mmol/L (135-145); Total Protein 7.9 g/dL (6.5-8.0)
[2024-10-09 18:56] LABS: INTERNATIONAL NORM RATIO 1.2 (0.9-1.1); Prothrombin Time 13.4 SEC (10.9-12.4)
[2024-10-09 18:58] LABS: Troponin-I High Sensitivity 5.6 ng/L (<3.5-35.0)
[2024-10-09 19:01] LABS: Basophils Absolute Auto 0.1 X10*3/uL (0.0-0.2); Basophils Percent Auto 0.5 % (0-2); Eosinophils Absolute Auto 0.2 X10*3/uL (0.0-0.4); Hematocrit 45.6 % (42.0-52.0); Hemoglobin 15.1 g/dl (14.0-18.0); Imm Gran Abs Auto 0.06 X10*3/uL (0.00-0.03); Imm Gran Pct Auto 0.5 % (0.0-0.4); Lymphocytes Absolute Auto 1.5 X10*3/uL (1.2-4.9); Lymphocytes Percent Auto 12.2 % (20-40); Mean Corpuscular HGB Conc 33.1 g/dl (31.0-36.0); Mean Corpuscular Hemoglobin 29.7 pg (27.0-33.0); Mean Corpuscular Volume 89.6 fL (80.0-98.0); Mean Platelet Volume 9.9 fL (9.4-12.4); Monocytes Absolute Auto 1.1 X10*3/uL (0.1-1.2); Monocytes Percent Auto 9.3 % (2-11); Neutrophils Absolute Auto 9.3 x10*3/uL (2.0-8.3); Neutrophils Percent Auto 75.5 % (45-73); Platelet Count 299 X10*3/uL (160-400); Red Blood Count 5.09 X10*6/uL (4.60-5.80); Red Cell Distribution Width 13.2 % (11.0-16.0); White Blood Count 12.3 X10*3/uL (4.8-10.8)
[2024-10-09 20:37] VITALS: BP 144/99; PULSE 78; RESP 18; TEMP 36.9; O2SAT 95
[2024-10-09 22:31] VITALS: BP 133/97; PULSE 100; RESP 19; TEMP 36.6; O2SAT 98
--- NOTE | 2024-10-09 22:34 | PC.NURSE ---
pt states that he never wanted to come here and was forced to come by his mother , denies any drug use, willing to do a urine sample and has a cup but is unable at this time, mother came to triage to voice displeasure that he has not been brought in yet, and also that he was not given a urine cup on arrival. pt does not want results discussed with her
--- NOTE | 2024-10-09 23:14 | PC.NURSE ---
at 1105 pt mother screamed from mwr, pt was asleep in chair and head was tilted back with snoring respirations, lips were blue, diaphoretic, slow to awaken, brought back to room 15, pt initially refused to go back to the ed and wanted to go outside. during the re eval done on this pt a short time ago, pt had been fully alert, speech clear with skin wpd
--- NOTE | 2024-10-09 23:20 | PC.NURSE ---
PT brought to 16 from 15 after being in waiting room for a number of hours. PT lethargic, falling in and out of sleep. Easily arousable however when he is sleeping pt de sats getting as 88%. PT placed on 3L NC. On cardiac exercise physiologist, curtain open to allow pt visible to nurses station. Mother anxious concerned about pt providing urine.
[2024-10-09 23:22] VITALS: BP 144/83; PULSE 103; RESP 10; O2SAT 97
--- NOTE | 2024-10-09 23:41 | PC.NURSE ---
PT down to radiology for imaging.
--- NOTE | 2024-10-10 00:05 | PC.NURSE ---
PTs mother approach RN stating that she wanted RN to be aware that PT still has not provided urine although he wants to but is not able to. The mother appeared to want TW to ensure that pt provides urine- she told pt giving urine is what is going to get you discharged TW offered pt gingerale and a urinal. Explained we are waiting or imaging results in addition to urine sample. PT agitated but cooperative. He and mother are swearing at each other.
[2024-10-10 00:48] LABS: Influenza A PCR NEGATIVE (Negative); Influenza B PCR NEGATIVE (Negative); Resp Syncy Virus RNA Qual PCR NEGATIVE (Negative); SARS COV2 PCR INHOUSE NEGATIVE (Negative)
--- NOTE | 2024-10-10 01:00 | PC.NURSE ---
Per notes pt does not want mom to have lab results.
--- NOTE | 2024-10-10 01:40 | PC.NURSE ---
TW walked PT to the bathroom in attempt to provide urine. Gait steady and pt much more alert. PT unable to give urine. VSS PT also looking for his phone, RN visualized pt using it earlier. PT provided hospital phone to call. PT stating his mother probably took his phone to go through it. PT called phone and mother returned to room shortly after. Also Reporting 5/10 LILLY. Verbal read back order placed
[2024-10-10] MEDS: Acetaminophen 325 MG TABLET 975 MG PO (02:01)
[2024-10-10 02:05] VITALS: BP 113/92; PULSE 88; RESP 16; O2SAT 92
[2024-10-10] MEDS: Naloxone HCl Nasal TAKE HOME 4 MG SPRAY 8 MG NOSTRILALT (02:07)
[2024-10-10 02:11] VITALS: BP 113/92; PULSE 88; RESP 16; TEMP -17.7; TEMP 0; O2SAT 92
== END 2024-10-10 02:26 | disposition home or self-care (01) ==
PROVIDERS: Physician Assistant; Emergency Provider Emergency Medicine; PCP Physician Assistant
DX: R55 Syncope and collapse (principal); R51.9 Headache, unspecified; R11.2 Nausea with vomiting, unspecified; Z03.818 Encounter for observation for suspected exposure to other biological agents ruled out; Z91.81 History of falling
CPT/HCPCS: 0241U; 36415; 70450; 71045; 80053; 83690; 84484; 85025; 85610; 93005; 99284

== ENCOUNTER → 2024-10-09 16:43 | Outpatient (BNV) | payer OTHER, SELFPAY | PROVIDERS: Emergency Provider Emergency Medicine; PCP Physician Assistant; Visit Provider Internal Medicine Cardiovascular Disease | DX: R40.4 Transient alteration of awareness (principal) | CPT/HCPCS: 93010 ==

== ENCOUNTER 2024-11-03 10:20 | Emergency (ER) | payer OTHER, SELFPAY ==
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
== END 2024-11-03 10:48 | disposition left against medical advice (07) ==
PROVIDERS: Emergency Provider Emergency Medicine
DX: F43.20 Adjustment disorder, unspecified (principal)

== ENCOUNTER 2024-11-03 11:34 | Inpatient (IN) | payer OTHER, SELFPAY ==
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
[2024-11-03 12:14] VITALS: BP 150/90; BP 152/90; PULSE 83; PULSE 86; RESP 20; TEMP 36.7; O2SAT 95; O2SAT 96; BMI 32.5
[2024-11-03 12:19] VITALS: RESP 18
--- NOTE | 2024-11-03 12:19 | PC.NURSE ---
Pt on phone making threats towards mom on phone you are not making things better, I will fuck up your life when I get out of here
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
[2024-11-03 12:34] LABS: Appearance Urine Clear; Color Urine Yellow; Glucose Urine UA Negative (Negative); Leukocyte Esterase Urine Negative (Negative); Nitrite Urine Negative (Negative); PH 5.5 (5.0-9.0); Specific Gravity - Urine 1.015 (1.005-1.025); Urine Blood Negative (Negative); Urine Ketones Trace mg/dL (Negative); Urine Protein Negative (Neg-Trace)
[2024-11-03] MEDS: Haloperidol Lactate 5 MG/ML VIAL IM (12:35)
[2024-11-03] MEDS: LORazepam 2 MG/ML VIAL IM (12:35)
--- NOTE | 2024-11-03 12:50 | PC.NURSE ---
Pt received IM medications without issue, pt requested IM medications so no restraint paperwork necessary. No physical hold required
[2024-11-03 12:58] LABS: Amphetamine Screen Urine Not Detected (Not Detect); Barbiturates, Urine Not Detected (Not Detect); Benzodiazepines Screen Urine Not Detected (Not Detect); Buprenorphine Scr Not Detected (Not Detect); Cannabinoid Screen Urine POSITIVE (Not Detect); Cocaine Screen Urine Not Detected (Not Detect); Fentanyl, urine POSITIVE (Not Detect); Methadone Screen, Urine Not Detected (Not Detect); Opiate Screen Urine Not Detected (Not Detect); Oxycodone Screen Urine Not Detected (Not Detect); Phencyclidine Screen Urine Not Detected (Not Detect)
[2024-11-03 12:59] LABS: MANUAL DIFF FLAG NO
[2024-11-03 13:03] LABS: Basophils Absolute Auto 0.1 X10*3/uL (0.0-0.2); Basophils Percent Auto 0.6 % (0-2); Eosinophils Absolute Auto 0.2 X10*3/uL (0.0-0.4); Eosinophils Percent Auto 1.9 % (0-4); Hematocrit 52.3 % (42.0-52.0); Hemoglobin 17.7 g/dl (14.0-18.0); Imm Gran Abs Auto 0.08 X10*3/uL (0.00-0.03); Imm Gran Pct Auto 0.6 % (0.0-0.4); Lymphocytes Percent Auto 23.6 % (20-40); Mean Corpuscular HGB Conc 33.8 g/dl (31.0-36.0); Mean Corpuscular Hemoglobin 29.8 pg (27.0-33.0); Mean Corpuscular Volume 88.2 fL (80.0-98.0); Mean Platelet Volume 9.5 fL (9.4-12.4); Monocytes Absolute Auto 0.7 X10*3/uL (0.1-1.2); Monocytes Percent Auto 5.2 % (2-11); Neutrophils Absolute Auto 8.7 x10*3/uL (2.0-8.3); Neutrophils Percent Auto 68.1 % (45-73); Platelet Count 411 X10*3/uL (160-400); Red Blood Count 5.93 X10*6/uL (4.60-5.80); White Blood Count 12.7 X10*3/uL (4.8-10.8)
--- NOTE | 2024-11-03 13:08 | PC.NURSE ---
pt reports not being totally compliant with his medications . he reports that he takes them some days and other days he does not
[2024-11-03 13:18] LABS: Alanine Aminotransferase 46 U/L (0-40); Albumin Level 5.1 g/dL (3.5-5.0); Anion Gap 16 (12-20); Aspartate Amino Transferase 45 U/L (5-37); Bilirubin Total 0.4 mg/dL (0.0-1.0); Blood Urea Nitrogen 11 mg/dL (9-16); Calcium 9.7 mg/dL (8.4-10.2); Carbon Dioxide 27 mmol/L (22-29); Chloride 105 mmol/L (96-108); Estimated Glomerular Filt Rate > 60; Ethanol 242 mg/dL; Glucose Random 81 mg/dL (60-115); Potassium 5.1 mmol/L (3.3-5.1); Sodium 143 mmol/L (135-145); Total Protein 8.8 g/dL (6.5-8.0)
[2024-11-03 13:21] LABS: Acetaminophen LAB < 3 mcg/mL (<30); Salicylate < 5.0 mg/dL (15-30)
[2024-11-03 13:37] LABS: Alkaline Phosphatase 101 U/L (39-117)
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
[2024-11-03 16:19] VITALS: RESP 16
[2024-11-03 19:30] VITALS: BP 132/72; PULSE 120; RESP 20; TEMP 36.9; O2SAT 95
--- NOTE | 2024-11-03 19:48 | PC.NURSE ---
patient appears to remain at rest made phone call to mother seemingly to have her visit or come get client t/w approached him to assess pain/comfort appears in no distress.
[2024-11-03 20:17] VITALS: BP 132/72
[2024-11-03] MEDS: cloNIDine HCL 0.1 MG TABLET PO (20:17)
[2024-11-03] MEDS: LORazepam 1 MG TABLET PO (20:17)
--- NOTE | 2024-11-04 | ECG_ITS ---
Test Reason : CHECK PROLONG QT Blood Pressure : */* mmHG Vent. Rate : 68 BPM Atrial Rate : 68 BPM P-R Int : 138 ms QRS Dur : 82 ms QT Int : 412 ms P-R-T Axes : 22 66 18 degrees QTcB Int : 438 ms Normal sinus rhythm Normal ECG When compared with ECG of 09-Oct-2024 18:19, No significant change was found Referred By: Winston Campa Electronically Signed By: CRISTINO GUTIERRES
[2024-11-04 05:59] VITALS: BP 166/94; PULSE 102; RESP 18; TEMP 36.9; O2SAT 97
--- NOTE | 2024-11-04 06:00 | PC.NURSE ---
elevated bp and pulse reported to provider, client states he doesnt feel its wd awaiting possible medication.
--- NOTE | 2024-11-04 06:17 | PC.NURSE ---
giving clonidine early per verbal order Angella.
[2024-11-04 06:19] VITALS: BP 166/94
[2024-11-04] MEDS: cloNIDine HCL 0.1 MG TABLET PO ×3 (06:19→22:20)
--- NOTE | 2024-11-04 07:25 | PC.NURSE ---
Care of Pt assumed at change of shift. Pt is currently resting comfortably with eye closed on bed. NAD noted at this time. Breakfast tray provided and left at bedside.
--- NOTE | 2024-11-04 08:33 | PHA.MEDREC ---
Addendum entered by Mary Bocanegra RPh 11/04/24 08:38: reviewed by [facility]. Original Note: Pharmacy Consult ? Medication Reconciliation Pharmacy has reviewed the medication reconciliation done by nursing. claim match med list.
[2024-11-04] MEDS: Escitalopram Oxalate 20 MG TABLET PO (10:03)
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
[2024-11-04] MEDS: Nicotine Polacrilex 2 MG GUM BUCCAL (11:04)
[2024-11-04] MEDS: hydrOXYzine HCL 50 MG TABLET PO (14:10)
--- NOTE | 2024-11-04 14:25 | MHC.CARE ---
Patient seen by CARE team for mental status evaluation, following chart review by psychiatry it was determined patient to remain IPLOC. Patient is aware of this.
[2024-11-04 15:08] VITALS: BP 150/96
[2024-11-04 20:31] VITALS: BP 144/89; PULSE 110; RESP 18; TEMP 37.5; O2SAT 96
[2024-11-04 22:20] VITALS: BP 150/96; PULSE 84; RESP 15; TEMP 35.8; O2SAT 95
[2024-11-04] MEDS: hydrOXYzine HCL 25 MG TABLET PO (22:20)
[2024-11-04] MEDS: traZODone HCL 50 MG TABLET PO (22:20)
[2024-11-05 01:12] VITALS: BMI 34.1
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
[2024-11-05 07:59] VITALS: BP 134/90; PULSE 103; TEMP 36.6; O2SAT 98
[2024-11-05 09:12] LABS: Estimated Average Glucose 97 mg/dL; Hemoglobin A1C 140.6665 umol/L
[2024-11-05 09:13] LABS: Cholesterol 254 mg/dL (<200); HDL Cholesterol 53 mg/dL (>40); LDL Cholesterol Calculated 160 mg/dL (<100); Magnesium 2.1 mg/dL (1.6-2.6); Triglycerides 206 mg/dL (<150)
[2024-11-05 09:31] LABS: Free T4 (Free Thyroxine) 1.09 ng/dL (0.71-1.85); Thyroid Stimulating Hormone 1.37 uIU/mL (0.32-4.0)
[2024-11-05] MEDS: Escitalopram Oxalate 20 MG TABLET PO (09:39)
[2024-11-05] MEDS: Folic Acid 1 MG TABLET PO (09:39)
[2024-11-05] MEDS: Thiamine HCL 100 MG TABLET PO (09:39)
[2024-11-05] MEDS: Multivitamin TABLET 1 TAB PO (09:39)
[2024-11-05 09:41] LABS: Folate 9.6 ng/mL (> or = 4.0); Vitamin B12 573 pg/mL (200-900)
[2024-11-05] MEDS: LORazepam 1 MG TABLET PO ×3 (09:43→21:31)
[2024-11-05 10:43] VITALS: BP 128/88
[2024-11-05] MEDS: cloNIDine HCL 0.1 MG TABLET PO ×3 (10:43→22:04)
[2024-11-05 14:06] VITALS: BP 128/84
--- NOTE | 2024-11-05 14:31 | P.HPPS_ITS ---
HPI Date of Service: 11/05/24 Chief Complaint: Alcohol Use Disorder, Depression, Suicide Attempt Sources of Information: patient interviewed, chart reviewed and crisis/core team assessment reviewed HPI Subjective Notes: Sanchez Warning, Conditional Voluntary and 3 Day Healthcare Proxy: No Guardianship: No Medical Problems Affecting Mental Status: No Narrative: Seen 11am. 34 yo male, history of mood disorder, polysubstance use disorder. Pt to ER with mother. He eloped from the waiting room, mother picked him up and attempted to bring him back to the ER. It is reported he attempted to jump from the vehicle several times so mother returned home and called EMS for help. Pt to ER on 12A from [employer]. Mother tells crisis pt has had an increase in depression and substance use since the ending of his relationship with his children's mother in Oct 2023. Mother reports pt was fired from his job prior to admit and he has not been attending regular OP appts. Mother reports pt has made several statements about suicide, needing to , being unable to fight current sx and referencing a friend from high school who suicided getting it right. It is reported he has informed his grandparents and the mother of his children that he will kill himself. Met with pt and team. I was intoxicated, I am not suicidal. I don't want to lose my job Discussed filing TDN 11/04-11/09 and felt he was being lied to. Pt reports compliance with OP treatment. Reports SI only with intoxication and no current sx of withdrawal. Reports having 3 children with 2 ex partners and his focus and motivation are the children. States he works with [employer] and states I know how to take apart thing and get out of here, I know how to get around things . Reports no control after he initiates drinking, uses cannabis gummies to help with sleep States he feels like a failure, has let the children down and is not there for them. Past Psychiatric History: Inpt: [facility] x1, February 2024 OP: [facility], new therapist being assigned. SIBS started age 24, cutting, when partner left, I hate myself . Past med trials: lexapro, clonidine Hx of suicide attempts: February 2024 Medical Evaluation Reviewed: Yes [facility] Medical History Asthma Depression Cocaine use disorder, moderate, dependence Polysubstance abuse Family History: denies Social History: pt currently staying with his mother. He from GF about one year ago. He has 3 children from two different partners. 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 Reports colleagues are alcoholics and there is much pressure for him to join in drinking with them. Substance History: BAL 242, Toxicology positive cannabis, fentanyl Trauma History: affirms Diagnostics Vital Signs (24Hr): Vital Signs - 24 hr 11/04/24 15:08 11/04/24 20:31 11/04/24 22:20 Temperature 99.5 F 96.4 F L Pulse Rate 110 H 84 Respiratory Rate 18 15 Blood Pressure 150/96 H 144/89 H 150/96 H Pulse Oximetry 96 95 Oxygen Delivery Method Room Air 11/05/24 07:59 11/05/24 10:43 11/05/24 14:06 Temperature 98 F Pulse Rate 103 H Respiratory Rate Blood Pressure 134/90 H 128/88 128/84 Pulse Oximetry 98 Oxygen Delivery Method Room Air BMI result Body Mass Index 34.1 Labs 11/03/24 12:52 11/03/24 12:52 Labs: Laboratory Results - last 48 hr 11/05/24 08:24 Estimat Average Glucose 97 Hemoglobin A1c % 5.0 Magnesium 2.1 Triglycerides 206 H Cholesterol 254 H LDL Cholesterol, Calc 160 H HDL Cholesterol 53 Vitamin B12 573 Folate 9.6 TSH 1.37 Free T4 1.09 Meds/Allergies Meds Home Medications ?Medication ?Instructions ?Recorded ?Confirmed ?Type clonidine HCl 0.1 mg tablet 0.1 mg PO TID 11/03/24 11/03/24 History escitalopram oxalate 10 mg tablet 20 mg PO DAILY 11/03/24 11/03/24 History Allergies Allergies Allergy/AdvReac Type Severity Reaction Status Date / Time almond Allergy Anaphylaxis Verified 11/03/24 12:17 aspirin Allergy Shortness Verified 11/03/24 12:17 of Breath bupropion AdvReac other Verified 11/05/24 11:01 Mental Status Exam Mental Status Exam Patient Appearance: Fatigued Patient Orientation: Person, Place, Time and Situation Level of Consciousness: Alert Patient Behavior: Talkative, Cooperative, Good Eye Contact and Crying Mood Description: Depressed Affect Description: Flat Patient Cognition Impaired: No Ability to Follow Directions: Good Speech Pattern: Spontaneous Speech Memory Description: Episodic Impaired Hallucinations: None Delusions: Not Present Thought Process: Rumination Thought Content: positive for Perseveration and positive for Suicidal Ideation (denies) Depressive Symptoms: Thoughts of /Suicide (denies) Judgement: Poor Assessment & Plan Assessment & Plan (1) Polysubstance abuse: Status: Acute Code(s): F19.10 - Other psychoactive substance abuse, uncomplicated (2) Cocaine use disorder, moderate, dependence: Status: Acute Code(s): F14.20 - Cocaine dependence, uncomplicated (3) Depression: Status: Acute Code(s): F32.A - Depression, unspecified (4) Suicidal ideations: Status: Acute Code(s): R45.851 - Suicidal ideations Plan Major Depression, Polysubstance Use Disorder. Plan: Admit, CV, Three day notice is filed, 15 minute checks Med eval Lamictal 25 mg HS Seroquel 25 mg HS Collateral contact Discharge planning. Patient educated on: medication risk/benefits and therapeutic strategies Reason for continued inpatient stay Substantial Risk for: rapid decompensation Statement Statement: I have reviewed the history and physical and performed a pertinent examination on my patient. No changes have occurred unless specified. If the History and Physical was not performed prior to admission, the Hospitalist's service will be consulted for completing the admission physical. Time Spent With Patient Time: Total time managing care of this patient today ____ minutes.
[2024-11-05 17:51] VITALS: BMI 34.4
[2024-11-05 20:00] VITALS: BP 118/76; PULSE 116; RESP 16; TEMP 36.1; O2SAT 97
[2024-11-05] MEDS: hydrOXYzine HCL 25 MG TABLET PO (21:31)
[2024-11-05] MEDS: traZODone HCL 50 MG TABLET PO ×2 (21:31→22:04)
[2024-11-05 22:04] VITALS: BP 147/68
[2024-11-05] MEDS: lamoTRIgine 25 MG TABLET PO (22:04)
[2024-11-05] MEDS: QUEtiapine Fumarate 25 MG TABLET PO (22:04)
[2024-11-06 08:00] VITALS: BP 177/91; PULSE 97; TEMP 36.4; O2SAT 97
[2024-11-06 08:35] VITALS: BP 138/65; PULSE 87
[2024-11-06] MEDS: Thiamine HCL 100 MG TABLET PO (08:52)
[2024-11-06] MEDS: Escitalopram Oxalate 20 MG TABLET PO (08:52)
[2024-11-06] MEDS: Multivitamin TABLET 1 TAB PO (08:52)
[2024-11-06] MEDS: Folic Acid 1 MG TABLET PO (08:52)
[2024-11-06] MEDS: LORazepam 1 MG TABLET PO ×2 (08:53→12:07)
[2024-11-06 08:55] VITALS: BP 138/65
[2024-11-06] MEDS: cloNIDine HCL 0.1 MG TABLET PO ×3 (08:55→20:55)
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
[2024-11-06 15:34] VITALS: BP 136/84
[2024-11-06] MEDS: Nicotine 21 MG PATCH.TD24 TRANSDERMA (15:39)
[2024-11-06 20:00] VITALS: BP 120/75; PULSE 84; RESP 14; TEMP 36.8; O2SAT 97
[2024-11-06] MEDS: OLANZapine 5 MG TABLET PO (20:55)
[2024-11-06] MEDS: hydrOXYzine HCL 25 MG TABLET PO (20:55)
[2024-11-06] MEDS: traZODone HCL 50 MG TABLET PO (20:55)
[2024-11-06] MEDS: lamoTRIgine 25 MG TABLET PO (20:55)
[2024-11-06] MEDS: QUEtiapine Fumarate 25 MG TABLET PO (20:55)
[2024-11-07 08:07] VITALS: BP 128/77; PULSE 76; TEMP 36.1; O2SAT 97
[2024-11-07] MEDS: Multivitamin TABLET 1 TAB PO (08:21)
[2024-11-07] MEDS: Thiamine HCL 100 MG TABLET PO (08:21)
[2024-11-07] MEDS: Escitalopram Oxalate 20 MG TABLET PO (08:21)
[2024-11-07] MEDS: Folic Acid 1 MG TABLET PO (08:21)
[2024-11-07] MEDS: cloNIDine HCL 0.1 MG TABLET PO ×3 (08:21→21:38)
[2024-11-07] MEDS: hydrOXYzine HCL 25 MG TABLET PO ×3 (08:55→21:38)
[2024-11-07] MEDS: Nicotine 21 MG PATCH.TD24 TRANSDERMA (08:55)
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
[2024-11-07 14:53] VITALS: BP 136/87
[2024-11-07] MEDS: Clotrimazole 1 % Cream 15 GM TUBE 1 APPL TOPICAL (16:17)
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
[2024-11-07] MEDS: OLANZapine 5 MG TABLET PO (18:16)
[2024-11-07 19:51] VITALS: BP 124/74; PULSE 82; RESP 16; TEMP 36.7; O2SAT 98
[2024-11-07] MEDS: busPIRone HCl 5 MG TABLET PO (21:38)
[2024-11-07] MEDS: QUEtiapine Fumarate 25 MG TABLET PO (21:38)
[2024-11-07] MEDS: lamoTRIgine 25 MG TABLET PO (21:38)
[2024-11-08 08:00] VITALS: BP 129/79; PULSE 82; RESP 18; TEMP 36.6; O2SAT 99
[2024-11-08] MEDS: Thiamine HCL 100 MG TABLET PO (08:20)
[2024-11-08] MEDS: Folic Acid 1 MG TABLET PO (08:20)
[2024-11-08] MEDS: hydrOXYzine HCL 25 MG TABLET PO (08:20)
[2024-11-08] MEDS: busPIRone HCl 5 MG TABLET PO (08:20)
[2024-11-08] MEDS: cloNIDine HCL 0.1 MG TABLET PO (08:20)
[2024-11-08] MEDS: Escitalopram Oxalate 20 MG TABLET PO (08:20)
[2024-11-08] MEDS: Clotrimazole 1 % Cream 15 GM TUBE 1 APPL TOPICAL (08:20)
[2024-11-08] MEDS: Multivitamin TABLET 1 TAB PO (08:20)
--- NOTE | 2024-11-15 21:09 | P.DS_ITS ---
DS: Providers Provider Date of admission: 11/04/24 18:30 Primary care physician: Unknown Physician Consults: 11/05/24 12:04 Addiction Medicine Routine Consulting Provider: Addiction Covering Reason for consultation: recovery coaching Has provider been notified: No DS: Diagnosis Discharge Diagnosis (1) Polysubstance abuse: Status: Acute (2) Cocaine use disorder, moderate, dependence: Status: Acute (3) Depression: Status: Acute (4) Suicidal ideations: Status: Resolved DS: Medications Discharge Medications Home Medications: Previous Rx's ?Medication ?Instructions ?Recorded albuterol sulfate 90 mcg/actuation 2 puff inhalation Q4-6H PRN 11/06/24 aerosol inhaler shortness of breath or wheezing #8.5 grams clonidine HCl 0.1 mg tablet 0.1 mg PO TID #90 tabs 11/06/24 escitalopram oxalate 20 mg tablet 20 mg PO DAILY #30 tabs 11/06/24 folic acid 1 mg tablet 1 mg PO DAILY #30 tabs 11/06/24 hydroxyzine HCl 25 mg tablet 25 mg PO Q6H PRN Anxiety #30 tabs 11/06/24 lamotrigine 25 mg tablet 25 mg PO BEDTIME #30 tabs 11/06/24 multivitamin (Daily-Erik tablet) 1 tab PO DAILY #30 tabs 11/06/24 quetiapine 25 mg tablet 25 mg PO BEDTIME #30 tabs 11/06/24 thiamine mononitrate (vit B1) 100 100 mg PO DAILY #30 tabs 11/06/24 mg tablet trazodone 50 mg tablet 50 mg PO BEDTIME MRX1 PRN Insomnia 11/06/24 #30 tabs buspirone 10 mg tablet 10 mg PO BID 30 days #60 tabs 11/07/24 DS: Summary Time Spent with Patient Time attestation: Total time managing care of this patient today ____ minutes. Discharge Plan Discharge Anticipated Discharge Date/Time: 11/08/24 11:00 Patient Disposition: Home, Self-Care Discharge Diagnosis: Major Depression Alcohol Use Disorder Polysubstance use Disorder Referrals: [facility] Psychiatry w Chin Hernandez [Other] - 11/13/24 4:30 pm (This appt will be via Video/Telehealth. SW spoke w [facility] regarding your request for a new psyche provider, they are now aware of the request and SW recommend following up with them. ) [facility] Therapy with [facility] [Other] - 3-5 Days (Contact [facility] to schedule an appt w Sav[facility]. FREDA spoke w [facility] to let her know your request to stay w her. Due to her interim role she was not able to continue therapy but was able to set you up with a clinician she thought would be a good match for you. She told sw that if it is not a good match to let her know and they will find another clinician. ) [facility] IOP [Other] (They are located in [place] and offer virtual IOP evening programs.) [facility] Partial Hospitalization Program [Other] (This is [facility] program and it is during the day, 9-2pm, M-F. Call for an intake if the day program ends up working for you. ) [facility] IOP Program [facility] [Other] (If your insurance changes give them a call to see if they accept it - this could be a long-term option once you get your insurance figured out. ) Inocencia Sal PA [Physician Ventilating Expert] - (Office will call you to schedule follow up appointment.) Discharge Medications: New multivitamin [Daily-Erik] Tablet 1 tab PO DAILY Qty: 30 0RF quetiapine 25 mg Tablet 25 mg PO BEDTIME Qty: 30 0RF clonidine HCl 0.1 mg Tablet 0.1 mg PO TID Qty: 90 0RF Protocol: Hold for SBP< HOLD for SBP < : 90 trazodone 50 mg Tablet 50 mg PO BEDTIME MRX1 PRN (Reason: Insomnia) Qty: 30 0RF lamotrigine 25 mg Tablet 25 mg PO BEDTIME Qty: 30 0RF folic acid 1 mg Tablet 1 mg PO DAILY Qty: 30 0RF hydroxyzine HCl 25 mg Tablet 25 mg PO Q6H PRN (Reason: Anxiety) Qty: 30 0RF escitalopram oxalate 20 mg Tablet 20 mg PO DAILY Qty: 30 0RF thiamine mononitrate (vit B1) 100 mg Tablet 100 mg PO DAILY Qty: 30 0RF buspirone 10 mg tablet 10 mg PO BID 30 Days Qty: 60 0RF Continued albuterol sulfate 90 mcg/actuation HFA aerosol inhaler 2 puff inhalation Q4-6H PRN (Reason: shortness of breath or wheezing) Qty: 8.5 2RF Discontinued clonidine HCl 0.1 mg tablet 0.1 mg PO TID Protocol: Hold for SBP< HOLD for SBP < : 90 escitalopram oxalate 10 mg tablet 20 mg PO DAILY Discharge Orders: Discharge Order (Routine); Ordered 11/08/24 Ordered By: Kari Pritchard Diet: Advance to usual diet Activity on Discharge: As tolerated Stand Alone Forms: Patient Portal Discharge page, Community Support Print Language: Vietnamese Care Plan Goals: Abstinence from substances Mood and Behavioral Stabilization Health Concerns: Abstinence from substances Mood and Behavioral Stabilization Plan of Treatment: Attend scheduled appointments Take medications as directed. Assessment: Risk assessment at time of discharge:? Patient was interviewed prior to discharge and found to be fully oriented and without any SI or HI. Patient has improved insight and judgment and wants to continue treatment. Patient is not in imminent risk of harm to self or others and has a safety plan that includes presenting to the closest ER or calling 911 if feeling unsafe.? Patient has been observed closely by nursing and unit staff throughout admission; patient has not engaged in any behaviors that suggest dangerousness to self or others and has de monstrated appropriate behaviors and impulse control Discharge Date/Time: 11/08/24 10:29
== END 2024-11-08 10:29 | disposition home or self-care (01) | DRG 754 ==
LOC: HO.ED 21:39 → HO.PM5 11-04 18:45
PROVIDERS: Emergency Medicine; Admitting Provider Clinical Nurse Specialist Psychiatric/Mental Health, Adult; Emergency Provider Internal Medicine; Visit Provider Clinical Nurse Specialist Psychiatric/Mental Health, Adult
DX: F32.A Depression, unspecified (principal); R45.851 Suicidal ideations; F14.20 Cocaine dependence, uncomplicated; F10.929 Alcohol use, unspecified with intoxication, unspecified; F19.10 Other psychoactive substance abuse, uncomplicated; J45.909 Unspecified asthma, uncomplicated; Y90.8 Blood alcohol level of 240 mg/100 ml or more; Z79.899 Other long term (current) drug therapy
CPT/HCPCS: 36415; 70450; 80053; 80061; 80143; 80179; 80307; 81003; 82607; 82746; 83036; 83735; 84439; 84443; 85025; 93005; 99285; J1630; J2060; S9485

== ENCOUNTER → 2024-11-04 16:47 | Outpatient (BNV) | payer OTHER, SELFPAY | PROVIDERS: Admitting Provider Clinical Nurse Specialist Psychiatric/Mental Health, Adult; Emergency Provider Internal Medicine; Visit Provider Internal Medicine | DX: Z51.81 Encounter for therapeutic drug level monitoring (principal) | CPT/HCPCS: 93010 ==

== ENCOUNTER 2024-11-04 18:30 | Outpatient (BNV) | payer OTHER, SELFPAY | END 2024-11-04 20:50 | PROVIDERS: Admitting Provider Clinical Nurse Specialist Psychiatric/Mental Health, Adult; Emergency Provider Internal Medicine; Visit Provider Radiology Diagnostic Radiology | DX: R45.851 Suicidal ideations (principal); X83.8XXA Intentional self-harm by other specified means, initial encounter | CPT/HCPCS: 70450 ==

== ENCOUNTER → 2024-11-04 18:30 | Outpatient (BNV) | payer OTHER, SELFPAY | PROVIDERS: Admitting Provider Clinical Nurse Specialist Psychiatric/Mental Health, Adult; Emergency Provider Internal Medicine; Visit Provider Clinical Nurse Specialist Psychiatric/Mental Health, Adult | DX: F32.2 Major depressive disorder, single episode, severe without psychotic features (principal); F19.10 Other psychoactive substance abuse, uncomplicated; F14.20 Cocaine dependence, uncomplicated; R45.851 Suicidal ideations | CPT/HCPCS: 99232 ==

== ENCOUNTER → 2024-12-18 09:00 | Outpatient (BNV) | payer OTHER, SELFPAY | PROVIDERS: Visit Provider Psychiatry & Neurology Psychiatry | DX: F39 Unspecified mood [affective] disorder (principal); F19.10 Other psychoactive substance abuse, uncomplicated; F10.90 Alcohol use, unspecified, uncomplicated; F63.89 Other impulse disorders | CPT/HCPCS: 90834 ==

== ENCOUNTER 2024-12-31 08:15 | Outpatient (RCR) | payer OTHER, SELFPAY ==
[2024-12-18 12:07] VITALS: BMI 24.1
[2024-12-18 12:08] VITALS: BP 110/70; PULSE 76; TEMP 37.2
--- NOTE | 2024-12-18 13:43 | P.HPPSP_ITS ---
HPI Date of Service: 12/18/24 Chief Complaint: AUD,depression Sources of Information: patient interviewed, chart reviewed and crisis/core team assessment reviewed HPI Narrative: Patient is a 34 yo male with history of mood disorder, alcohol and polysubstance addiction who was hospitalized last month for depression and substance abuse after presenting to the ED with depression, SI, intoxicated, making suicidal threats to family in the context of life stressors (recent break-up with partner and job loss). He wound up eloping form the ED and was transported back to hospital by police on a section 12a. He spent 4 days IPLOC and was discharged on 11/08/24. I'm doing better . He notes that there have been improvements in his anxiety and depression, it's not been awful . He admits having 2 beers right after discharge from hospital which I admit was stupid but says he has since been avoiding alcohol for the time being and attending AA. He says he did not experience any physiological withdrawal (when asked about cravings) but does relay feeling vulnerable to thoughts of relapsing especially when confronted with minor frustrations and inconveniences (such as getting cut in a parking lot, going to the store to find what he is looking for is out of stock..) pretty much anything sets me off . Relays issues with impulsivity, low stress tolerance, gets easily irritated but also gets over it just as quickly . He had been living with his mother since he and his ex-girlfriend broke up last year. Since discharge he has been living with his grandparents in [place]. He has 3 children whom he shares with his ex-GF as well as from a previous partner. Past Psychiatric History: Inpt: [facility], February 2024 OP: [facility], new therapist being assigned. SIBS started age 24, cutting, when partner left, I hate myself . Past med trials: lexapro, clonidine Hx of suicide attempts: February 2024 CURRENT MEDICATIONS: escitalopram 20 mg qd buspirone 10 mg BID lamotrigine 25 mg qd clonidine 0.1 mg TID quetiapine 25 mg qhs trazodone 50 mg qhs with 50 mg PRN sleep hydroxyzine 25 mg q6hr PRN albuterol PRN [facility] Medical History (Updated 12/20/24 @ 23:49 by Pamella Van MD) History of concussion Polysubstance abuse Asthma Cocaine use disorder, moderate, dependence Depression Family History: denies Social History: pt currently staying with his mother. He from GF about one year ago. He has 3 children from two different partners. 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 Reports colleagues are alcoholics and there is much pressure for him to join in drinking with them. Substance History: denies any alcohol or substance use since last month. Occasional marijuana use Trauma History: affirms Diagnostics Vital Signs (24Hr): BMI result Body Mass Index 24.1 Meds/Allergies Allergies Allergies Allergy/AdvReac Type Severity Reaction Status Date / Time almond Allergy Anaphylaxis Verified 11/03/24 12:17 aspirin Allergy Shortness Verified 11/03/24 12:17 of Breath bupropion AdvReac Agitated, Verified 12/18/24 12:07 irritable. Mental Status Exam Mental Status Exam Narrative: Alert, oriented, in no acute distress. Calm, cooperative, engaged. No psychomotor agitation or neurovegetative retardation. Eye contact maintained. Mood depressed, affect constricted, irritable edge without notable lability. Speech normal. Thought process linear, coherent. Thought content related to stressors, transient helplessness, no hopelessness noted, denies SI, intention, urge or plan. Denies any aggressive ideation or HI. No paranoia or delusional content elicited. No evidence of psychosis. Insight and judgment - fair but adequate Assessment & Plan Assessment & Plan (1) Alcohol use disorder: Status: Acute Code(s): F10.90 - Alcohol use, unspecified, uncomplicated (2) Other specified episodic mood disorder: Status: Acute Code(s): F39 - Unspecified mood [affective] disorder (3) Polysubstance abuse: Status: Acute Code(s): F19.10 - Other psychoactive substance abuse, uncomplicated (4) Other impulse disorders: Status: Acute Code(s): F63.89 - Other impulse disorders Plan Admit to [facility] reviewed: abrefile, BP 10/70;?76 bpm start naltrexone 50 mg qhs increase lamotrigine to 50 mg qd (continue to titrate by 25 mg q 2 weeks until 100 mg/d) continue other regular medications? Routine lab work ordered as indicated EKG, routine for baseline QTc for medication considerations as indicated UDS as indicated [facility] reviewed Continue to monitor as per protocol Patient educated on: diagnosis, medication risk/benefits and substance abuse Informed Consent: understands Reason for continued partial hosp. stay Substantial Risk for: rapid decompensation and med/psych decompensation Certification I certify that partial hospital treatment is medically necessary due to the symptoms and problems resulting from the patient's mental illness and the fa ilure to treat the patient at the partial hospital level of care would likely result in the patient requiring inpatient psychiatric care which could not be prevented at a less intensive level of care. Time Spent With Patient Time: Total time managing care of this patient today __90__ minutes.
--- NOTE | 2024-12-18 13:52 | PC.ADMIT ---
Patient is a 34 year old single male who was referred to [facility] by [facility] inpatient behavioral health unit where he was admitted from 11/04-11/08/24 secondary to history of polysubstance use and history of mood disorder. This was the patient's second inpatient hospitalization at [facility] inpatient unit. Per records, patient's mother whom he lives with in a finished basement of patient's grandparents home, brought patient to the ER as she was concerned about his level of depression and substance use along with suicidal statements he was making at the time. Patient reportedly eloped from the ER waiting room and patient's mother picked him up in her vehicle. Patient attempted to jump out of the vehicle several times on their way home. When they returned home EMS was called and a section 12 was obtained by the [place] Police. Patient struggling with ongoing substance use along with the ending of relationship with his girlfriend, the mother of one of his children. Patient reportedly has 3 children with 2 different mothers. Patient reportedly becomes suicidal when using substances. Toxicology screen positive for Fentanyl and Marijuana. BAl 242. Patient reports he used one bag of heroin prior to hospitalization and was drinking alcohol. Patient also has a history of overdosing on 02/2023 on heroin and it is unclear if this was intentional or accidental. Patient is on unemployment currently. Stated this is a perfect time for him to do this program. 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 Patient currently is alert and oriented x4. He is calm and cooperative. Appeared motivated for treatment. He presented with anxious mood and affect. He denied SI. He was given a copy of his safety plan if needed. He reports he has been sober from alcohol for the past month stated he would have been sober for a month in a half however he reports having 2 beers during that time. He reports his drug of choice is crack cocaine however when he is unable to get this he turns to heroin. Last time he used cocaine was a month ago. He reports he was using this almost daily. Last time he used heroin was prior to hospitalization and he had an accidentally overdose at that time as he stated there was fentanyl in the heroin. He reports last time he used this prior to hospitalization was a few months ago stated he uses heroin here and there . Patient reports he attends daily and has a sponsor. Patient was given information about a population health coach and MAT however he reports he is not interested at this time and feels he has enough supports currently. Patient aware if he changes his mind while in the program to let staff know. Patient denied any history of withdrawal sxs from alcohol . Patient wants to continue to work on his sobriety and work on his relationship with the mother of his child. He denied any cravings for any substances. Reports he is sleeping well. Has an increased appetite. Patient given education including written and verbally about cocaine use disorder, alcohol short and skilled nursing effect, and 101 things to do instead of using substances. Medications reconciled with patient and patient's discharge paperwork from inpatient unit. He reports taking medications as prescribed. Patient asked if he could complete a DAMON however he stated he previously went to the bathroom prior to our meeting and was unable to go. He stated this is the first time that he wants to give a DAMON as it will be negative aside from Marijuana.
--- NOTE | 2024-12-23 01:52 | P.PNPSP_ITS ---
Subjective Subjective Date of Service: 12/22/24 Reason For Visit: AUD,depression Interim History: Patient complains of restlessness low frustration tolerance has little patience for minor inconveniences. He notes that his mother has been revisiting these lifelong struggles now that he is been living with family. He has a history of a impulsivity hyperactivity especially in childhood with disruptive behaviors he says his mother said is happy that he is here to get help and reportedly encouraged him to get help with his ADHD issues as well. He has been benefitting from the structure of being around his parents and grandparents as well as avoidance of further alcohol use I he notes that he has spent the past week trying to catch up on back taxes which he is owed for over the past 4 years but did not do which totals over 9000 dollars. He is he is also filed for unemployment however at the [employer] has garnished his wages at so he has been left with no money expenses as including child support payments main complaint at this time is just struggling with restlessness and distractibility. He says these are longstanding issues but admits that habitual cocaine and alcohol use has occupied him to the detriment of caring for his mental health. He admits that he was and prevent racing thoughts. He notes that anxiety has been higher off substances but feels this is more due to being more aware for conscious of of himself ?the 1st time in a long time I am trying to deal with things I have been masking my problems for a long time. That is all. He is tolerating increase in Lamictal as well as starting on naltrexone. He has a remote history of being treated with stimulant medication in adolescence including Ritalin Adderall Concerta he can not call how helpful these medications were but does not really any side effects he is currently on clonidine which she is not ent irely sure if it has been helpful but does not know keeps his blood pressure lower he has not been on Strattera or guanfacine or any other ADHD medications he tried going without trazodone and says this did not make any impact on his sleep so he plans to discontinue this he still takes Seroquel 50 mg at night. Also is not sure this is helpful for anything but sleep denies any adverse effects. SLeep, appetite, energy intact. Denies SI, HI. No AVH. 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 Says his provider Chin Hernandez NP and he have casually mentioned ADHD but does not believe any plans were made or discussed to address these issues. Medication Compliance: Yes Side effects from medications: No Attending Groups: Yes Review of Systems Acute medical concerns: No Mental Status Exam Mental Status Exam Narrative: Alert, oriented, in no acute distress. Calm, cooperative, engaged, relaxed but very restless. Psychomotor agitation (bouncing leg, fidgeting), remains seated. Eye contact maintained. Mood okay denies depressed, some annoyance affect constricted,no notable lability. Speech normal. Thought process linear, coherent. Thought content related to stressors, poor frustration tolerance, distractibility, attentional issues. Less helplessness, no hopelessness noted, denies SI, intention, urge or plan. Denies any aggressive ideation or HI. No paranoia or delusional content elicited. No evidence of psychosis. Insight and judgment - fair but adequate Diagnostics Vital Signs (24Hr): BMI result Body Mass Index 24.1 Assessment & Plan Assessment & Plan (1) Alcohol use disorder: Status: Acute Code(s): F10.90 - Alcohol use, unspecified, uncomplicated (2) Other specified episodic mood disorder: Status: Acute Code(s): F39 - Unspecified mood [affective] disorder (3) Polysubstance abuse: Status: Acute Code(s): F19.10 - Other psychoactive substance abuse, uncomplicated (4) Other impulse disorders: Status: Acute Code(s): F63.89 - Other impulse disorders Plan we discussed/planned starting oxcarbazepine 150 mg BID to target restlessness/impulsivity - however, in review, there is a risk of allergic rxn given potential for tartrazine sensitivity in patients with aspirin allergy (cross-reactivity w FD&C yellow 5 (which contains tartrazine dye) used in all doses of OXC tablets. apparently long-acting formulation does not contain this compound). Other preferred option ziprasidone has DDI w escitalopram and would consider taper/discont (could start Strattera), continue naltrexone 50 mg qhs continue lamotrigine 50 mg qd (continue to titrate by 25 mg q 2 weeks until 100 mg/d) continue other regular medications? Routine lab work ordered as indicated EKG, routine for baseline QTc for medication considerations as indicated UDS as indicated Continue to monitor Patient educated on: diagnosis, medication risk/benefits and substance abuse Informed Consent: understands Reason for contiued partial hosp. stay Substantial Risk for: inability to function, rapid decompensation and med/psych decompensation Certification I certify that partial hospital treatment is medically necessary due to the symptoms and problems resulting from the patient's mental illness and the failure to treat the patient at the partial hospital level of care would likely result in the patient requiring inpatient psychiatric care which could not be prevented at a less intensive level of care. Total time managing care of this patient today __30__ minutes. Discharge Plan Discharge Attending provider: Pamella Van Medications: New naltrexone 50 mg tablet 50 mg PO BEDTIME Qty: 14 0RF lamotrigine 25 mg tablet See Rx Instructions .ROUTE .COMPLEX 28 Days Qty: 70 0RF Rx Instructions: take 2 tablets po daily for 2 weeks, then increase to 3 tablets po daily for 2 weeks escitalopram oxalate 10 mg tablet 15 mg PO DAILY Qty: 21 0RF No Action multivitamin [Daily-Erik] Tablet 1 tab PO DAILY Qty: 30 0RF quetiapine 25 mg Tablet 25 mg PO BEDTIME Qty: 30 0RF clonidine HCl 0.1 mg Tablet 0.1 mg PO TID Qty: 90 0RF Protocol: Hold for SBP< HOLD for SBP < : 90 trazodone 50 mg Tablet 50 mg PO BEDTIME MRX1 PRN (Reason: Insomnia) Qty: 30 0RF lamotrigine 25 mg Tablet 25 mg PO BEDTIME Qty: 30 0RF hydroxyzine HCl 25 mg Tablet 25 mg PO Q6H PRN (Reason: Anxiety) Qty: 30 0RF escitalopram oxalate 20 mg Tablet 20 mg PO DAILY Qty: 30 0RF albuterol sulfate 90 mcg/actuation HFA aerosol inhaler 2 puff inhalation Q4-6H PRN (Reason: shortness of breath or wheezing) Qty: 8.5 2RF buspirone 10 mg tablet 10 mg PO BID 30 Days Qty: 60 0RF Print Language: Jordanian
--- NOTE | 2024-12-24 15:15 | HO.PHP ---
Client's case has been opened and reviewed in team.
[2024-12-24 16:13] LABS: Amphetamine Screen Urine Not Detected (Not Detect); Barbiturates, Urine Not Detected (Not Detect); Benzodiazepines Screen Urine Not Detected (Not Detect); Buprenorphine Scr Not Detected (Not Detect); Cannabinoid Screen Urine POSITIVE (Not Detect); Cocaine Screen Urine Not Detected (Not Detect); Fentanyl, urine Not Detected (Not Detect); Methadone Screen, Urine Not Detected (Not Detect); Opiate Screen Urine Not Detected (Not Detect); Oxycodone Screen Urine Not Detected (Not Detect); Phencyclidine Screen Urine Not Detected (Not Detect)
--- NOTE | 2024-12-25 19:13 | P.PNPSP_ITS ---
Subjective Subjective Date of Service: 12/25/24 Reason For Visit: AUD,depression Interim History: Patient seen for today to discuss switching our treatment plan since patient has history of SOB/rash/anaphylactic rxn from aspirin, there is a risk of cross- allergy with tartrazine dye (component of oxcarbazepine tablets) so we ended up not starting him on the medication. Things are pretty much stayed the same with decrease in escitalopram. Denies worsening anxiety, mood. No major events since admission. Mood is still depressed, irritable, no better, no worse . Denies any relapses in the interim. He is eager to start on mood stabilizer since we decided against oxcarbazepine. He has long standing history of adhd struggles impulsivity, hyperactivity, was a very rambunctious hyperactive as a child, manifests more as impulsivity, reactivity low frustration tolerance as an adult. I'm not bouncing off garcia like I was as a kid, but still fidget a lot with my hands, fiddle with stuff... drop pens . Will start Vraylar to target mood instability, irritability, impulsivity. If not covered by insurance will order Abilify or Geodon. Sleep overall is good. Appetite sometimes too much , not good at planning ahead for meals and just grabbing things to eat. Denies any SI, HI, AH, VH. Medication Compliance: Yes Side effects from medications: No Attending Groups: Yes Review of Systems Acute medical concerns: No Mental Status Exam Mental Status Exam Narrative: Alert, oriented, in no acute distress. Calm, cooperative, engaged, relaxed but restless/ fidgets. Psychomotor agitation (bouncing leg, fidgeting), remains seated. Eye contact maintained. Mood the same , mostly occasional irritablity, easily annoyed , affect constricted, no notable irritability, lability. Speech normal. Thought process linear, coherent. Thought content related to stressors, poor frustration tolerance, distractibility, attentional issues. Less helplessness, no hopelessness noted, denies SI, intention, urge or plan. Denies any aggressive ideation or HI. No paranoia or delusional content elicited. No evidence of psychosis. Insight and judgment - fair but adequate 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 Routine lab work ordered as indicated EKG, routine for baseline QTc for medication considerations as indicated UDS as indicated Continue to monitor Patient educated on: diagnosis, medication risk/benefits and substance abuse Informed Consent: understands Reason for contiued partial hosp. stay Substantial Risk for: inability to function and med/psych decompensation Certification I certify that partial hospital treatment is medically necessary due to the symptoms and problems resulting from the patient's mental illness and the failure to treat the patient at the partial hospital level of care would likely result in the patient requiring inpatient psychiatric care which could not be prevented at a less intensive level of care. Total time managing care of this patient today __30__ minutes. Discharge Plan Discharge Attending provider: Pamella Van Medications: New naltrexone 50 mg tablet 50 mg PO BEDTIME Qty: 14 0RF lamotrigine 25 mg tablet See Rx Instructions .ROUTE .COMPLEX 28 Days Qty: 70 0RF Rx Instructions: take 2 tablets po daily for 2 weeks, then increase to 3 tablets po daily for 2 weeks escitalopram oxalate 10 mg tablet 15 mg PO DAILY Qty: 21 0RF cariprazine 1.5 mg capsule 1.5 mg PO BEDTIME Qty: 14 0RF No Action multivitamin [Daily-Erik] Tablet 1 tab PO DAILY Qty: 30 0RF quetiapine 25 mg Tablet 25 mg PO BEDTIME Qty: 30 0RF clonidine HCl 0.1 mg Tablet 0.1 mg PO TID Qty: 90 0RF Protocol: Hold for SBP< HOLD for SBP < : 90 trazodone 50 mg Tablet 50 mg PO BEDTIME MRX1 PRN (Reason: Insomnia) Qty: 30 0RF lamotrigine 25 mg Tablet 25 mg PO BEDTIME Qty: 30 0RF hydroxyzine HCl 25 mg Tablet 25 mg PO Q6H PRN (Reason: Anxiety) Qty: 30 0RF escitalopram oxalate 20 mg Tablet 20 mg PO DAILY Qty: 30 0RF albuterol sulfate 90 mcg/actuation HFA aerosol inhaler 2 puff inhalation Q4-6H PRN (Reason: shortness of breath or wheezing) Qty: 8.5 2RF buspirone 10 mg tablet 10 mg PO BID 30 Days Qty: 60 0RF Print Language: Slovenian
--- NOTE | 2024-12-30 21:29 | P.PNPSP_ITS ---
Subjective Subjective Date of Service: 12/29/24 Reason For Visit: AUD,depression Interim History: Patient seen for follow-up. ?It has been going all right, not terrible ?reports feeling calmer he has been taking Vraylar is at 3 mg now since Saturday after taking 1.5 mg for 2 nights. He does not notice sleeping well and feeling still a little tired in the morning. Denies any emotional or behavioral dysregulation. He seems less irritable and edgy. Although subjectively still feels restless, figdeting, shaking my legs, lazy and unfocused . He is hoping we could address his ADHD issues. Says since living with his mother she constantly points out his disruptive behaviors, restlessness, impulsivity, disorganization, poor focus. Clonidine is somewhat helpful but causes him some lightheadedness especially upon getting up He complains his mood is a little lower today but is not sure if this is just tiredness from medication. We had lowered the escitalopram from 20 to 15 mg as I was unsure if the 20 mg was causing some overactivation (felt more pressured in intense on admission). He does seem to be still quite restless and active, which may be the ADHD after all), unclear if improvements in irritability impulsivity is due to Vraylar or reduction in escitalopram; we may consider returning the dose to 20 mg at some point. Sleep appetite energy stable he denies any SI HI AH or VH. Denies any recent alcohol or substance use. For now will focus on treatment for ADHD symptoms. He reportedly has done well on stimulants in the past however given history of PSA including recent illicit stimulant use and recent overdose while intoxicated, for now will avoid any controlled substances, will also avoid using antidepressant medications (Strattera) since patient already on high dose of escitalopram, and has allergy to bupropion. He is agreeable to holding the clonidine,and starting on guanfacine ER 1 mg in the morning as well as starting amantadine daily at bedtime Medication Compliance: Yes Side effects from medications: Yes (clonidine - transient lightheadedness) Attending Groups: Yes Review of Systems Acute medical concerns: No Mental Status Exam Mental Status Exam Narrative: Alert, oriented, in no acute distress. Calm, cooperative, engaged, relaxed but restless/ fidgets. Psychomotor agitation (bouncing leg, fidgeting), remains seated. Eye contact maintained. Mood the same , mostly occasional irritablity, easily annoyed , affect constricted, no notable irritability, lability. Speech normal. Thought process linear, coherent. Thought content related to stressors, poor frustration tolerance, distractibility, attentional issues. Less helplessness, no hopelessness noted, denies SI, intention, urge or plan. Denies any aggressive ideation or HI. No paranoia or delusional content elicited. No evidence of psychosis. Insight and judgment - fair but adequate 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 Plan continue PHP hold clonidine start guanfacine ER 1-2 mg qam start amantadine 50-100 mg qhs to target impulsivity, adhd sx continue Vraylar 3 mg qhs continue escitalopram 15 mg qd (may return dose to 20 mg if was not activating and mood worsens) continue naltrexone 50 mg qhs continue lamotrigine 50 mg qd (due to titrate to 75 mg/d next week) continue other regular medications?- albuterol prn, trazodone prn discont buspirone (ineffective, pt stopped), quetiapine Routine lab work ordered as indicated EKG, routine for baseline QTc for medication considerations as indicated UDS as indicated Reviewed VS (12/18): 110/70; 76 bpm (on clonidine 0.1 mg tid) Continue to monitor Patient educated on: diagnosis, medication risk/benefits and substance abuse Informed Consent: understands Reason for contiued partial hosp. stay Substantial Risk for: inability to function and med/psych decompensation Certification I certify that partial hospital treatment is medically necessary due to the symptoms and problems resulting from the patient's mental illness and the failure to treat the patient at the partial hospital level of care would likely result in the patient requiring inpatient psychiatric care which could not be prevented at a less intensive level of care. Total time managing care of this patient today __30__ minutes. Discharge Plan Discharge Attending provider: Pamella Van Medications: New naltrexone 50 mg tablet 50 mg PO BEDTIME Qty: 14 0RF lamotrigine 25 mg tablet See Rx Instructions .ROUTE .COMPLEX 28 Days Qty: 70 0RF Rx Instructions: take 2 tablets po daily for 2 weeks, then increase to 3 tablets po daily for 2 weeks escitalopram oxalate 10 mg tablet 15 mg PO DAILY Qty: 21 0RF cariprazine 1.5 mg capsule 1.5 mg PO BEDTIME Qty: 14 0RF guanfacine 1 mg tablet extended release 24 hr 1 mg PO DAILY Qty: 14 0RF amantadine HCl 100 mg tablet See Rx Instructions .ROUTE .COMPLEX Qty: 14 0RF Rx Instructions: take 1/2 tablet daily at bedtime for 2 days then increase to one tablet daily at bedtime cariprazine 3 mg capsule 3 mg PO DAILY Qty: 14 0RF Continued hydroxyzine HCl 25 mg Tablet 25 mg PO Q6H PRN (Reason: Anxiety) Qty: 30 0RF albuterol sulfate 90 mcg/actuation HFA aerosol inhaler 2 puff inhalation Q4-6H PRN (Reason: shortness of breath or wheezing) Qty: 8.5 2RF Discontinued quetiapine 25 mg Tablet 25 mg PO BEDTIME Qty: 30 0RF lamotrigine 25 mg Tablet 25 mg PO BEDTIME Qty: 30 0RF escitalopram oxalate 20 mg Tablet 20 mg PO DAILY Qty: 30 0RF buspirone 10 mg tablet 10 mg PO BID 30 Days Qty: 60 0RF No Action multivitamin [Daily-Erik] Tablet 1 tab PO DAILY Qty: 30 0RF clonidine HCl 0.1 mg Tablet 0.1 mg PO TID Qty: 90 0RF Protocol: Hold for SBP< HOLD for SBP < : 90 trazodone 50 mg Tablet 50 mg PO BEDTIME MRX1 PRN (Reason: Insomnia) Qty: 30 0RF Print Language: [place] Telehealth Telehealth Telehealth Platform: Telephone
--- NOTE | 2024-12-31 11:49 | HO.PHPPROGNO ---
Subjective Subjective Date of Service: 12/31/24 Reason For Visit: AUD,depression Interim History: Patient seen for follow-up, anticipating discharge at the end of program today.? Reports no acute issues or concerns. Medication compliant, medications well-tolerated. Denies any adverse effects. Mood is more stable, less irritable or impulsive.? Denies any hopelessness or SI. Denies thoughts of harming self or others at this time. Denies any aggressive ideation or HI. Denies any paranoia or AH or VH. Sleep, appetite, energy stable. Medication Compliance: Yes Side effects from medications: No Attending Groups: Yes Review of Systems Acute medical concerns: No Mental Status Exam Mental Status Exam Narrative: Alert, oriented, in no acute distress. Calm, cooperative. Less fidgety. Mood stable, affect appropriate. Speech normal. Thought process linear, coherent, more goal-directed. Thought content related to stressors, future-oriented, denies any helplessness, hopelessness or SI.? No aggressive ideation or HI. No paranoia or delusional content elicited. No evidence of psychosis. Insight and judgment fair-good. 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 Plan [facility]charge from [facility] continue Vraylar 3 mg qhs continue escitalopram 15 mg qd continue lamotrigine 50 mg qd (titrate by 25 mg q 2 wks until 100 mg/d) continue guanfacine ER 1 mg qam continue amantadine 100 mg qhs to target impulsivity, adhd sx continue naltrexone 50 mg qhs continue buspirone 10 mg BID (for sexual dysfunction) continue other regular medications?- albuterol prn, trazodone prn, hydroxyzine prn quetiapine discontinued Routine lab work ordered as indicated EKG, routine for baseline QTc for medication considerations as indicated Refills sent to pharmacy Will defer further medication management to outpatient provider *Safety plan reviewed *Discharge diagnoses, treatment course, discharge plan have been reviewed with patient (including medication regime, medication management, potential side effects) as well as treatment rationale were also revisited *Discharge paperwork signed and given to patient, copy sent for scanning to chart Patient educated on: diagnosis, medication risk/benefits and substance abuse Informed Consent: understands Reason for contiued partial hosp. stay Substantial Risk for: stable for discharge Certification I certify that partial hospital treatment is medically necessary due to the symptoms and problems resulting from the patient's mental illness and the failure to treat the patient at the partial hospital level of care would likely result in the patient requiring inpatient psychiatric care which could not be prevented at a less intensive level of care. Total time managing care of this patient today _30___ minutes. Discharge Plan Discharge Attending provider: Pamella Van Medications: New lamotrigine 25 mg tablet See Rx Instructions .ROUTE .COMPLEX 28 Days Qty: 70 0RF Rx Instructions: take 2 tablets po daily for 2 weeks, then increase to 3 tablets po daily for 2 weeks escitalopram oxalate 10 mg tablet 15 mg PO DAILY Qty: 21 0RF guanfacine 1 mg tablet extended release 24 hr 1 mg PO DAILY Qty: 14 0RF amantadine HCl 100 mg tablet See Rx Instructions .ROUTE .COMPLEX Qty: 14 0RF Rx Instructions: take 1/2 tablet daily at bedtime for 2 days then increase to one tablet daily at bedtime cariprazine 3 mg capsule 3 mg PO DAILY Qty: 14 0RF lamotrigine 100 mg tablet 100 mg PO DAILY Qty: 30 0RF buspirone 10 mg tablet 10 mg PO BID Qty: 30 0RF prednisone 20 mg tablet 20 mg PO BID Qty: 8 0RF Continued multivitamin [Daily-Erik] Tablet 1 tab PO DAILY Qty: 30 0RF hydroxyzine HCl 25 mg Tablet 25 mg PO Q6H PRN (Reason: Anxiety) Qty: 30 0RF albuterol sulfate 90 mcg/actuation HFA aerosol inhaler 2 puff inhalation Q4-6H PRN (Reason: shortness of breath or wheezing) Qty: 8.5 2RF naltrexone 50 mg tablet 50 mg PO BEDTIME Qty: 30 0RF Discontinued quetiapine 25 mg Tablet 25 mg PO BEDTIME Qty: 30 0RF clonidine HCl 0.1 mg Tablet 0.1 mg PO TID Qty: 90 0RF Protocol: Hold for SBP< HOLD for SBP < : 90 trazodone 50 mg Tablet 50 mg PO BEDTIME MRX1 PRN (Reason: Insomnia) Qty: 30 0RF lamotrigine 25 mg Tablet 25 mg PO BEDTIME Qty: 30 0RF escitalopram oxalate 20 mg Tablet 20 mg PO DAILY Qty: 30 0RF buspirone 10 mg tablet 10 mg PO BID 30 Days Qty: 60 0RF Patient Education: ADHD in Adults (ED), ADHD in Adults (DC), Depression (DC), Polysubstance Abuse (ED), Alcohol Use Disorder (DC) Print Language: Panamanian
--- NOTE | 2025-01-14 00:11 | PM.EVENT ---
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 I spoke with Ruben who was feeling better from asthma exacerbation, completed 4 days of prednisone. He has been compliant on all medications - Vraylar, Lamcital, amantadine, guanfacine, Buspar and Lexapro. Ran out of guanfacine and amantadine on Saturday. He met with his med provider yesterday who filled all his medications and is now back on the guanfacine and amantadine. He reports doing well on the medicaiton, feels more calm and in control. Restlessness and hyperactivity much improved. His mom notices imrpovement and also noticed he was crabbier off those 2 medications. Denies any other issues. Time Spent With Patient Time: Total time managing care of this patient today _15___ minutes.
== END 2024-12-31 23:59 | disposition home or self-care (01) ==
LOC: HO.PHPA 08:15
PROVIDERS: Visit Provider Psychiatry & Neurology Psychiatry
DX: F10.90 Alcohol use, unspecified, uncomplicated (principal); F39 Unspecified mood [affective] disorder; F63.89 Other impulse disorders; F19.10 Other psychoactive substance abuse, uncomplicated; Z91.51 Personal history of suicidal behavior; Z79.899 Other long term (current) drug therapy
CPT/HCPCS: 80307; 90791; 90853